=== PATIENT | female | born 1950 | race Caucasian/White ===

== ENCOUNTER 2017-12-10 16:08 | Emergency (ER) | payer OTHER ==
[~2017-12-10] VITALS: Ht 167.6 cm; Wt 95.2 kg
[~2017-12-10 16:08] MED LIST: ASPI325T4 PO; CITA10TA8 PO; CRS10 PO; FLUT0.0529 NAE; GLC/500 PO; OMEP20TA PO; TAMO20TA9 PO
[2017-12-10 16:10] VITALS: Ht 167.6 cm; Wt 95.2 kg
[2017-12-10] MEDS ORDERED: MoRPHine SULFATE 4 MG/ML 1 ML CARP\\VIAL IV STA (16:23)
[2017-12-10] MEDS ORDERED: ONDANSETRON INJ 2 MG/ML 2 ML VIAL IV STA (16:23)
[2017-12-10 16:39] LABS: BASO ABS # 0.06 K/uL (0-0.2); EOS % 4.9 %; EOS ABS # 0.28 K/uL (0-0.5); HEMATOCRIT 37.4 % (37-47); HEMOGLOBIN 13.2 g/dL (12.0-16.0); IG# 0.03 K/uL (0.00-0.02); LYMPH % 25.7 %; LYMPH ABS # 1.48 K/uL (1.2-3.4); MEAN CORPUSCULAR HEMOGLOBIN 30.7 pg (25-34); MEAN CORPUSCULAR HGB CONC 35.3 g/dl (32-36); MEAN PLATELET VOLUME 8.7 fL (7.4-10.4); MONO % 10.9 %; MONO ABS # 0.63 K/uL (0.11-0.59); NEUT ABS # 3.28 K/uL (1.4-6.5); PLATELET COUNT 214 K/uL (130-400); RED CELL DISTRIBUTION WIDTH CV 13.4 % (11.5-14.5); RED CELL DISTRIBUTION WIDTH SD 42.6 fL (36.4-46.3); WHITE BLOOD COUNT 5.76 K/uL (4.8-10.8)
--- NOTE | 2017-12-10 17:06 | DIAGNOSTIC IMAGING REPORT ---
L RIBS UNILATERAL WITH PA CHEST HISTORY: 67 years-old Female L sided chest pain. 6-7 rib acute left sided atypical chest pain with pain most pronounced within the region of the left sixth and seventh ribs. COMPARISON: Chest radiograph 08/11/2015 TECHNIQUE: PA view of the chest with 4 views of the left ribs FINDINGS: Cardiomediastinal and hilar silhouettes are within normal limits. Atherosclerosis of the aorta. There is no pneumothorax, pleural effusion, focal airspace consolidation or overt pulmonary edema. Degenerative changes are seen within the shoulders and spine. Cholecystectomy clips are noted. Ribs appear intact without acute fracture identified. IMPRESSION: 1. No acute cardiopulmonary process. 2. No acute rib fracture or pneumothorax identified. The above report was generated using voice recognition software. It may contain grammatical, syntax or spelling errors. Electronically signed by: Manjit Castillo M.D. 12/10/2017 5:05 PM Dictated Date/Time: 12/10/2017 5:02 PM
[2017-12-10 17:09] LABS: ALBUMIN 3.5 gm/dl (3.4-5.0); CREATININE 1.06 mg/dl (0.60-1.20); POTASSIUM 3.3 mmol/L (3.5-5.1); TOTAL PROTEIN 7.3 gm/dl (6.4-8.2)
[2017-12-10] MEDS ORDERED: METF-384 PO (17:17)
[2017-12-10] MEDS ORDERED: TRAM-10 PO (17:17)
[2017-12-10] MEDS ORDERED: ASPI81TA28 PO (17:17)
[2017-12-10] MEDS ORDERED: CITA20TA9 PO (17:17)
[2017-12-10] MEDS ORDERED: HYDR25TA4 PO (17:17)
[2017-12-10] MEDS ORDERED: AMLO-110 PO (17:17)
[2017-12-10] MEDS ORDERED: PROAIR INH (17:17)
[2017-12-10] MEDS ORDERED: INSDGIPEN SQ (17:22)
[2017-12-10] MEDS ORDERED: CYCL10TA6 PO (17:29)
[2017-12-10] MEDS ORDERED: OPTIRAY 320 IV PRN (18:30)
[2017-12-10 18:51] LABS: INFLUENZA B ANTIGEN Neg for Influ B (NEG)
--- NOTE | 2017-12-10 18:56 | DIAGNOSTIC IMAGING REPORT ---
CT ANGIOGRAM OF THE CHEST CLINICAL HISTORY: Atypical chest pain. COMPARISON STUDY: Chest x-ray dated 08/11/2015. PET CT dated 01/23/2015. TECHNIQUE: Following the IV administration of 89 cc of Optiray 320, CT angiogram of the chest was performed from the upper abdomen to the thoracic inlet utilizing the pulmonary embolus protocol. Images are reviewed in the axial, sagittal, and coronal planes. 3-D MIPS images are created and assessed. IV contrast was administered without complication. A dose lowering technique was utilized adhering to the principles of ALARA. CT DOSE: 556.84 mGycm FINDINGS: Thyroid: Imaged portions of the thyroid gland are normal in size and attenuation. A subcentimeter low-attenuation nodule is seen in the right lobe. Thoracic aorta: There is atherosclerotic calcification of the thoracic aorta is normal in caliber and demonstrates standard 3-vessel arch anatomy. No dissection is seen. 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 Pulmonary vasculature: The pulmonary trunk is normal in caliber. There are no filling defects identified in main, lobar, or segmental pulmonary branches to suggest pulmonary embolus. Heart: The heart is normal in size and without pericardial effusion. There are coronary artery calcifications. Lungs and pleural spaces: A fat-containing Bochdalek hernia is seen at the left lung base. No airspace consolidation or pleural effusion is identified. The trachea and central airways are patent. Mediastinum: There is no mediastinal lymphadenopathy. Rosa Maria: Clear. Axillae: There is no axillary lymphadenopathy. Upper abdomen: The liver appears enlarged and steatotic. A small hiatal hernia is identified. Skeletal structures: The skeletal structures are osteopenic. Degenerative change is noted in the shoulders and thoracic spine. No lytic or blastic bony lesions are seen. Soft tissues: Postoperative changes present in both breasts suggesting bilateral mastectomy. Presumed seromas are present bilaterally. IMPRESSION: 1. There is no evidence of pulmonary embolus in the main, lobar, or segmental pulmonary arteries. 2. There is no airspace consolidation or pleural effusion. 3. 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 Note that this may place the patient at risk for subclavian steal phenomenon. 4. Findings suggest previous bilateral mastectomy. Seromas are suggested within the ventral chest wall bilaterally. 5. Additional findings as above. Electronically signed by: Andriy Desouza M.D. 12/10/2017 6:54 PM Dictated Date/Time: 12/10/2017 6:46 PM
[2017-12-10] MEDS ORDERED: OXYC1TAB3 PO (19:12)
[2017-12-10] MEDS ORDERED: BENZ100C18 PO (19:12)
[2017-12-10 19:39] VITALS: BP 112/71; PULSE 81; TEMP 36.8; O2SAT 98
--- NOTE | 2017-12-10 20:52 | EMERGENCY ROOM VISIT NOTE ---
History Report prepared by Maryann: Casie Cortez Under the Supervision of: Dr. Yovany Arambula D.O. First contact with patient: 16:14 Chief Complaint: RIB PAIN Stated Complaint: SIDE PAIN L History of Present Illness The patient is a 67 year old female who presents to the Emergency Room with complaints of persistent left rib pain starting around 1 hour ago. The pain started suddenly when she coughed. She felt something rip in her side. The pain worsens with exhaling, coughing, and moving. The patient has had a cough for the past 2 weeks. It has been productive of clear and yellow sputum. She has had some rhinorrhea. She denies any headache, ear pain, sore throat, fever, abdominal pain, nausea, vomiting, dysuria, weakness, or numbness. She does smoke. She is on aspirin. She has a history of diabetes and hypertension. She denies any previous NV or blood clots. Source of History: patient Onset: 1 hour ago Position: other (left rib) Quality: other (pain) Timing: other (persistent) Modifying Factors (Worsening): breathing, movement, other (coughing) Associated Symptoms: + cough, No fevers, No headache, No sorethroat, No nausea, No vomiting, No abdominal pain, No urinary symptoms, No weakness, No numbness Note: Pt reports rhinorrhea. Pt denies ear pain. Review of Systems See HPI for pertinent positives & negatives. A total of 10 systems reviewed and were otherwise negative. Past Medical & Surgical Medical Problems: (1) Breast cancer (2) Breast cancer (3) Diabetes mellitus (4) Dyslipidemia (5) Migraines Surgical Problems: (1) H/O bilateral mastectomy (2) H/O dilation and curettage (3) H/O inguinal hernia repair (4) S/P cholecystectomy Family History FH: cancer Social History Smoking Status: Current Every Day Smoker Alcohol Use: none Drug Use: none Marital Status: Housing Status: lives with significant other Occupation Status: retired Current/Historical Medications Scheduled Amlodipine (Norvasc), 5 MG PO DAILY Aspirin (Aspirin Ec), 81 MG PO DAILY Benzonatate (Tessalon Perles), 100 MG PO TID Citalopram Hydrobromide (Celexa), 20 MG PO DAILY Hydrochlorothiazide (Hctz), 25 MG PO DAILY Insulin Glargine (Lantus Solostar), 32 UNITS SQ HS Metformin Hcl (Glucophage), 1,000 MG PO BID Rosuvastatin Calcium (Crestor), 10 MG PO DAILY Tamoxifen (Nolvadex), 20 MG PO DAILY Scheduled PRN Cyclobenzaprine Hcl (Flexeril), 5-10 MG PO TID PRN for Muscle Spasms Omeprazole (Omeprazole), 20 MG PO DAILY PRN for heart burn Oxycodone Immediate Rel Tab (Roxicodone Ir), 5 MG PO Q6H PRN for Pain Tramadol (Ultram), 50 MG PO Q6 PRN for Pain [Proair], 2 PUFF INH Q6 PRN for SOB/Wheezing Allergies Coded Allergies: Penicillins (Verified Allergy, Unknown, RASH, 12/27/09) Atorvastatin (Verified Adverse Reaction, Unknown, MYALGIA, 12/10/17) Physical Exam Vital Signs Date Time Temp Pulse Resp B/P (MAP) Pulse Ox O2 Delivery O2 Flow Rate FiO2 12/10/17 19:39 36.8 81 16 112/71 98 12/10/17 19:38 81 16 112/71 98 Room Air 12/10/17 17:46 81 12/10/17 17:39 78 20 118/69 98 Room Air 12/10/17 16:10 36.8 91 20 177/80 98 Room Air Physical Exam GENERAL: Sitting up in bed, dry nonproductive cough, minimal distress, nontoxic. EYE EXAM: normal conjunctiva. OROPHARYNX: no exudate, no erythema, lips, buccal mucosa, and tongue normal and mucous membranes are moist NECK: supple, no nuchal rigidity, no adenopathy, non-tender CHEST: Acute reproducible tenderness over the ribs 5-7 left mid axillary line. Pain worsens with movement/palpation. LUNGS: Clear to auscultation. Normal chest wall mechanics HEART: no murmurs, S1 normal and S2 normal ABDOMEN: abdomen soft, non-tender, normo-active bowel sounds, no masses, no rebound or guarding. BACK: Back is symmetrical on inspection and there is no deformity, no midline tenderness, no CVA tenderness. SKIN: no rashes and no bruising UPPER EXTREMITIES: upper extremities are grossly normal. LOWER EXTREMITIES: No pitting edema. Calves equal bilaterally. NEURO EXAM: Normal sensorium, cranial nerves II-XII grossly intact, normal speech, no gross weakness of arms, no gross weakness of legs. Medical Decision & Procedures ER Provider Diagnostic Interpretation: Xray results as stated below per my and the radiologist's interpretation. Radiology results as stated below per my review and the radiologist's interpretation: L RIBS UNILATERAL WITH PA CHEST HISTORY: 67 years-old Female L sided chest pain. 6-7 rib acute left sided atypical chest pain with pain most pronounced within the region of the left sixth and seventh ribs. COMPARISON: Chest radiograph 08/11/2015 TECHNIQUE: PA view of the chest with 4 views of the left ribs FINDINGS: Cardiomediastinal and hilar silhouettes are within normal limits. Atherosclerosis of the aorta. There is no pneumothorax, pleural effusion, focal airspace consolidation or overt pulmonary edema. Degenerative changes are seen within the shoulders and spine. Cholecystectomy clips are noted. Ribs appear intact without acute fracture identified. IMPRESSION: 1. No acute cardiopulmonary process. 2. No acute rib fracture or pneumothorax identified. The above report was generated using voice recognition software. It may contain grammatical, syntax or spelling errors. Electronically signed by: Manjit Castillo M.D. 12/10/2017 5:05 PM Dictated Date/Time: 12/10/2017 5:[address] ANGIOGRAM OF THE CHEST CLINICAL HISTORY: Atypical chest pain. COMPARISON STUDY: Chest x-ray dated 08/11/2015. PET CT dated 01/23/2015. TECHNIQUE: Following the IV administration of 89 cc of Optiray 320, CT angiogram of the chest was performed from the upper abdomen to the thoracic inlet utilizing the pulmonary embolus protocol. Images are reviewed in the axial, sagittal, and coronal planes. 3-D MIPS images are created and assessed. IV contrast was administered without complication. A dose lowering technique was utilized adhering to the principles of ALARA. CT DOSE: 556.84 mGycm FINDINGS: Thyroid: Imaged portions of the thyroid gland are normal in size and attenuation. A subcentimeter low-attenuation nodule is seen in the right lobe. Thoracic aorta: There is atherosclerotic calcification of the thoracic aorta is normal in caliber and demonstrates standard 3-vessel arch anatomy. No dissection is seen. 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 Pulmonary vasculature: The pulmonary trunk is normal in caliber. There are no filling defects identified in main, lobar, or segmental pulmonary branches to suggest pulmonary embolus. Heart: The heart is normal in size and without pericardial effusion. There are coronary artery calcifications. Lungs and pleural spaces: A fat-containing Bochdalek hernia is seen at the left lung base. No airspace consolidation or pleural effusion is identified. The trachea and central airways are patent. Mediastinum: There is no mediastinal lymphadenopathy. Rosa Maria: Clear. Axillae: There is no axillary lymphadenopathy. Upper abdomen: The liver appears enlarged and steatotic. A small hiatal hernia is identified. Skeletal structures: The skeletal structures are osteopenic. Degenerative change is noted in the shoulders and thoracic spine. No lytic or blastic bony lesions are seen. Soft tissues: Postoperative changes present in both breasts suggesting bilateral mastectomy. Presumed seromas are present bilaterally. IMPRESSION: 1. There is no evidence of pulmonary embolus in the main, lobar, or segmental pulmonary arteries. 2. There is no airspace consolidation or pleural effusion. 3. 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 Note that this may place the patient at risk for subclavian steal phenomenon. 4. Findings suggest previous bilateral mastectomy. Seromas are suggested within the ventral chest wall bilaterally. 5. Additional findings as above. Electronically signed by: Andriy Desouza M.D. 12/10/2017 6:54 PM Dictated Date/Time: 12/10/2017 6:46 PM Laboratory Results 12/10/17 16:25 Red Blood Count 4.30, Mean Corpuscular Volume 87.0, Mean Corpuscular Hemoglobin 30.7, Mean Corpuscular Hemoglobin Concent 35.3, Mean Platelet Volume 8.7, Neutrophils (%) (Auto) 57.0, Lymphocytes (%) (Auto) 25.7, Monocytes (%) (Auto) 10.9, Eosinophils (%) (Auto) 4.9, Basophils (%) (Auto) 1.0, Neutrophils # (Auto ) 3.28, Lymphocytes # (Auto) 1.48, Monocytes # (Auto) 0.63, Eosinophils # (Auto ) 0.28, Basophils # (Auto) 0.06 12/10/17 16:25 Test 12/10/17 16:25 12/10/17 16:45 12/10/17 17:30 White Blood Count 5.76 K/uL (4.8-10.8) Red Blood Count 4.30 M/uL (4.2-5.4) Hemoglobin 13.2 g/dL (12.0-16.0) Hematocrit 37.4 % (37-47) Mean Corpuscular Volume 87.0 fL (80-100) Mean Corpuscular Hemoglobin 30.7 pg (25-34) Mean Corpuscular Hemoglobin Concent 35.3 g/dl (32-36) Platelet Count 214 K/uL (130-400) Mean Platelet Volume 8.7 fL (7.4-10.4) Neutrophils (%) (Auto) 57.0 % Lymphocytes (%) (Auto) 25.7 % Monocytes (%) (Auto) 10.9 % Eosinophils (%) (Auto) 4.9 % Basophils (%) (Auto) 1.0 % Neutrophils # (Auto) 3.28 K/uL (1.4-6.5) Lymphocytes # (Auto) 1.48 K/uL (1.2-3.4) Monocytes # (Auto) 0.63 K/uL (0.11-0.59) Eosinophils # (Auto) 0.28 K/uL (0-0.5) Basophils # (Auto) 0.06 K/uL (0-0.2) RDW Standard Deviation 42.6 fL (36.4-46.3) RDW Coefficient of Variation 13.4 % (11.5-14.5) Immature Granulocyte % (Auto) 0.5 % Immature Granulocyte # (Auto) 0.03 K/uL (0.00-0.02) D-Dimer 590 ug/L FEU (0-500) Anion Gap 12.0 mmol/L (3-11) Est Creatinine Clear Calc Drug Dose 59.9 ml/min Estimated GFR () 62.9 Estimated GFR (Non- 54.3 BUN/Creatinine Ratio 20.0 (10-20) Calcium Level 9.0 mg/dl (8.5-10.1) Total Bilirubin 0.3 mg/dl (0.2-1) Direct Bilirubin mg/dl (0-0.2) Aspartate Amino Transf (AST/SGOT) 23 U/L (15-37) Alanine Aminotransferase (ALT/SGPT) 28 U/L (12-78) Alkaline Phosphatase 40 U/L (45-117) Total Protein 7.3 gm/dl (6.4-8.2) Albumin 3.5 gm/dl (3.4-5.0) Lipase 208 U/L (73-393) Chemistry Specimen Hemolysis Urine Color YELLOW Urine Appearance CLEAR (CLEAR) Urine pH 5.0 (4.5-7.5) Urine Specific [place] 1.022 (1.000-1.030) Urine Protein 1+ (NEG) Urine Glucose (UA) 2+ (NEG) Urine Ketones NEG (NEG) Urine Occult Blood NEG (NEG) Urine Nitrite NEG (NEG) Urine Bilirubin NEG (NEG) Urine Urobilinogen NEG (NEG) Urine Leukocyte Esterase NEG (NEG) Urine WBC (Auto) 1-5 /hpf (0-5) Urine RBC (Auto) 0-4 /hpf (0-4) Urine Hyaline Casts (Auto) 1-5 /lpf (0-5) Urine Epithelial Cells (Auto) >30 /lpf (0-5) Urine Bacteria (Auto) NEG (NEG) Influenza Type A Antigen Neg for Influ A (NEG) Influenza Type B Antigen Neg for Influ B (NEG) Laboratory results per my review. Medications Administered Medications (Trade) Dose Ordered Sig/Luis Route Start Time Stop Time Status Last Admin Dose Admin Morphine Sulfate (MoRPHine SULFATE INJ) 4 mg NOW STAT IV 12/10/17 16:23 12/10/17 16:24 DC 12/10/17 16:40 4 MG Ondansetron HCl (Zofran Inj) 4 mg NOW STAT IV 12/10/17 16:23 12/10/17 16:24 DC 12/10/17 16:39 4 MG ECG Indication: chest pain Rate (beats per minute): 84 Rhythm: sinus rhythm Findings: left axis deviation, other (poor baseline inferior, early R wave progression) Change: EKG per my interpretation. ED Course ED COURSE: Vital signs were reviewed and showed hypertension. The patients medical record was reviewed The above diagnostic studies were performed and reviewed. ED treatments and interventions as stated above. 1617: The patient was evaluated in room B8. A complete history and physical examination was performed. 1623: Zofran Inj 4 mg IV, Morphine Sulfate 4 mg IV. 1739: I reevaluated the patient. I updated her on the results. 1906: I discussed the patients case with Dr. Beckman, [facility] vascular surgery. He recommends the patient follow up as outpatient. 1908: Upon reevaluation, the patient is resting comfortably. I discussed my findings with the patient and she understands and agrees with the treatment plan. Based on the patients age, coexisting illnesses, exam and lab findings the decision to treat as an outpatient was made. The patient remained stable while under my care. The patient appeared well at the time of discharge. Medical Decision Differential diagnoses includes but is not limited to acute coronary syndrome, myocardial infarction, pericarditis, pulmonary embolus, aortic dissection, pneumonia, pneumothorax, musculoskeletal, shingles, esophageal. Patient is a 67-year-old female who presents to ER for severe left-sided mid axillary pain. This started while coughing. She has had upper respiratory symptoms for the past 2 weeks. No fevers. No history of PEs. EKG was unremarkable. D-dimer was elevated. X-rays of the chest show no obvious fractures. CT PE shows no PEs but left subclavian artery stenosis. She is completely asymptomatic on reevaluation with this. She notes that she is aware of this and her PCP is following this. Her pain has improved significantly. Her coughing has decreased as well. CBC along with BMP, LFTs, bilirubin lipase is unremarkable. UA was negative. Patient was discharged with Michi Ireland and instructed to follow up with her PCP and vascular surgery has had discussed with Dr. Beckman findings and he agreed with having the patient following up as an outpatient. Discussed with Pt concerning signs and symptoms to watch out for. Pt was instructed to follow up with their PCP and discussed with the patient their option to return to the ED at anytime for persistent or worsening symptoms. The appropriate anticipatory guidance and out-patient management, including indications for return to the emergency department, were explained at length to the patient and understood. [place] Drug Monitoring Program Search Results: patient reviewed within database, no issues identified Medication Reconcilliation Current Medication List: was personally reviewed by me Blood Pressure Screening Patient's blood pressure: Elevated blood pressure Blood pressure disposition: Referred to PCP Consults Time Called: 1903 Consulting Physician: Dr. Beckman, [facility] vascular surgery Returned Call: 1906 I discussed the patient's case with him. He recommends the patient follow up as outpatient. Impression Primary Impression: Rib pain on left side Additional Impressions: Subclavian artery stenosis, left Hypokalemia Scribe Attestation The scribe's documentation has been prepared under my direction and personally reviewed by me in its entirety. I confirm that the note above accurately reflects all work, treatment, procedures, and medical decision making performed by me. Departure Information Dispostion Home / Self-Care Prescriptions Benzonatate (TESSALON PERLES) 100 Mg Cap 100 MG PO TID, #30 CAP Prov: Yovany Arambula, DO 12/10/17 Oxycodone Immediate Rel Tab (ROXICODONE IR) 5 Mg Tab 5 MG PO Q6H Y for Pain, #10 TAB Prov: Yovany Arambula, DO 12/10/17 Referrals Teja Parker D.O. (PCP) Mahesh Beckman M.D. Forms HOME CARE DOCUMENTATION FORM, IMPORTANT VISIT INFORMATION, WORK / SCHOOL INSTRUCTIONS Patient Instructions ED Contusion Vs Minor Fx Rib, My [facility] Additional Instructions Please follow up with your primary care doctor with in the next 24 hours. Any worsening of your symptoms, please return to the ED immediately. This includes any fevers greater than 100.4, worsening pain, chest pain, shortness breath, persistent nausea, vomiting, unable to eat or drink, or any other concerning signs or symptoms from your standpoint. You were given medications during this visit that will inhibit your ability to drive, operate machinery and work. Please do NOT drive, operate machinery or work for the next 12hrs. You were also given a prescription for a narcotic. While taking this medication you should also not drive, operate machinery and or work. You were found to have a blood pressure greater than 120 systolic over 90 diastolic. Due to the new Medicare guidelines, we are now recommending that you follow up with your primary care doctor in regards to this elevated blood pressure. Do not take her metformin for the next 2 days. Please follow up with vascular surgery over the next month for the subclavian artery stenosis found on CT of the chest. Problem Qualifiers
== END 2017-12-10 19:39 | disposition home or self-care (01) ==
LOC: C.EDB 16:09
DX: R07.81 Pleurodynia (principal); I77.1 Stricture of artery; E87.6 Hypokalemia; E11.9 Type 2 diabetes mellitus without complications; E78.5 Hyperlipidemia, unspecified; F17.200 Nicotine dependence, unspecified, uncomplicated; Z79.82 Long term (current) use of aspirin; Z79.4 Long term (current) use of insulin

== ENCOUNTER 2018-01-12 23:39 | Inpatient (IN) | payer OTHER ==
[~2018-01-12] VITALS: Ht 167.6 cm; Wt 90.1 kg
[~2018-01-12 23:39] MED LIST changes: +AMLO-110 PO; -ASPI325T4 PO; +ASPI81TA28 PO; -CITA10TA8 PO; +CITA20TA9 PO; +CYCL10TA6 PO; -FLUT0.0529 NAE; -GLC/500 PO; +HYDR25TA4 PO; +INSDGIPEN SQ; +METF-384 PO; +OXYC1TAB3 PO; +PROAIR INH; +TRAM-10 PO
--- NOTE | 2018-01-12 23:59 | EMERGENCY ROOM VISIT NOTE ---
History Report prepared by Maryann: Annalise Arango Under the Supervision of: Dr. Berhane Pepper M.D. First contact with patient: 23:47 Chief Complaint: SHORTNESS OF BREATH Stated Complaint: SHORTNESS OF BREATH,WHEEZING History of Present Illness The patient is a 67 year old female who presents to the Emergency Room with complaints of persistent shortness of breath started earlier today. The patient reports she has an inhaler at home. She notes she saw her PCP today and they did a chest x-ray and a breathing treatment. She states she's had a cough and congestion for the past few days. The patient reports she has been on 60 mg Prednisone for 5 days. She notes she took Zithromysin for 4 days but she switched to Levaquin today. She states she has chest pain "every once in a while ". The patient denies any fevers, headaches, body aches, falls, injuries, or calf pain. She denies a history of blood clots. Source of History: patient Onset: earlier in the day Position: other (SOB) Timing: other (persistent) Associated Symptoms: + cough, No fevers, No headache Note: Denies any body aches, falls, injuries, or calf pain. Additional symptoms: nasal congestion. Review of Systems See HPI for pertinent positives & negatives. A total of 10 systems reviewed and were otherwise negative. Past Medical & Surgical Medical Problems: (1) Breast cancer (2) Breast cancer (3) Diabetes mellitus (4) Dyslipidemia (5) Migraines (6) SOB (shortness of breath) (7) Wheezing Surgical Problems: (1) H/O bilateral mastectomy (2) H/O dilation and curettage (3) H/O inguinal hernia repair (4) S/P cholecystectomy Family History FH: cancer Social History Smoking Status: Never Smoker Alcohol Use: none Drug Use: none Marital Status: Housing Status: lives with significant other Occupation Status: retired Current/Historical Medications Scheduled Amlodipine (Norvasc), 5 MG PO DAILY Aspirin (Aspirin Ec), 81 MG PO DAILY Citalopram Hydrobromide (Celexa), 20 MG PO DAILY Hydrochlorothiazide (Hctz), 25 MG PO DAILY Insulin Glargine (Lantus Solostar), 32 UNITS SQ HS Levofloxacin (Levaquin), 500 MG PO DAILY Metformin Hcl (Glucophage), 1,000 MG PO BID Naproxen (Naprosyn), 500 MG PO BIDM Prednisone (Prednisone), 60 MG PO DAILY Rosuvastatin Calcium (Crestor), 10 MG PO DAILY Tamoxifen (Nolvadex), 20 MG PO DAILY Scheduled PRN Albuterol Sulf (Proventil 0.083% 2.5MG/3ML), 2.5 MG INH Q4H PRN for Wheezing Albuterol Sulfate (Proair Respiclick), 2 PUFFS INH Q6H PRN for COUGH OR WHEEZING Benzonatate (Tessalon Perles), 200 MG PO TID PRN for Cough Guaifenesin-Codeine (Robitussin-Ac Syrup), 5 ML PO TID PRN for Cough Omeprazole (Omeprazole), 20 MG PO DAILY PRN for heart burn Tramadol (Ultram), 50 MG PO Q6 PRN for Pain Allergies Coded Allergies: Penicillins (Verified Allergy, Unknown, RASH, 12/27/09) Atorvastatin (Verified Adverse Reaction, Unknown, MYALGIA, 12/10/17) Physical Exam Vital Signs Date Time Temp Pulse Resp B/P (MAP) Pulse Ox O2 Delivery O2 Flow Rate FiO2 01/13/18 02:01 85/65 01/13/18 01:32 100 17 95 Nasal Cannula 2.0 01/13/18 01:31 Nasal Cannula 2.0 01/13/18 01:30 21 93 Room Air 01/13/18 01:11 107 01/13/18 01:10 106 18 94 01/13/18 01:08 94 17 98/70 94 Room Air 01/13/18 01:08 94 Room Air 01/13/18 00:01 95 20 94 Room Air 01/12/18 23:41 36.7 105 28 123/77 92 Room Air Physical Exam GENERAL: Patient is uncomfortable appearing and is mildly distressed. HEENT: No acute trauma, normocephalic atraumatic, mucous membranes moist, no nasal congestion, no scleral icterus. NECK: No stridor, no adenopathy, no meningismus, trachea is midline. LUNGS: Tight lung sounds, diffuse inspiratory and expiatory wheezing, dyspneic and tachypneic. HEART: Mildly tachycardic. No murmurs, rubs, gallops appreciated. ABDOMEN: Soft, nontender, bowel sounds positive, no masses appreciated, no peritonitis. BACK: No midline tenderness, no CVA tenderness EXTREMITIES: Normal motion all extremities, no cyanosis, no edema. NEUROLOGIC: Alert and oriented, no acute motor or sensory deficits, no focal weakness, cranial nerves grossly intact. SKIN: No rash, no jaundice, no diaphoresis. Medical Decision & Procedures ER Provider Diagnostic Interpretation: X ray results are stated below per my interpretation: Chest: 1 view: No infiltrate, no effusion, normal cardiac border, however questionable atelectasis vs infiltrate in bilateral lower lobes. Laboratory Results 01/13/18 00:00 Red Blood Count 4.57, Mean Corpuscular Volume 85.6, Mean Corpuscular Hemoglobin 30.4, Mean Corpuscular Hemoglobin Concent 35.5, Mean Platelet Volume 8.6, Neutrophils (%) (Auto) 73.9, Lymphocytes (%) (Auto) 15.2, Monocytes (%) (Auto) 8.9, Eosinophils (%) (Auto) 0.1, Basophils (%) (Auto) 0.1, Neutrophils # (Auto) 10.41, Lymphocytes # (Auto) 2.15, Monocytes # (Auto) 1.26, Eosinophils # (Auto) 0.01, Basophils # (Auto) 0.02 Test 01/13/18 00:00 White Blood Count 14.11 K/uL (4.8-10.8) Red Blood Count 4.57 M/uL (4.2-5.4) Hemoglobin 13.9 g/dL (12.0-16.0) Hematocrit 39.1 % (37-47) Mean Corpuscular Volume 85.6 fL (80-100) Mean Corpuscular Hemoglobin 30.4 pg (25-34) Mean Corpuscular Hemoglobin Concent 35.5 g/dl (32-36) Platelet Count 340 K/uL (130-400) Mean Platelet Volume 8.6 fL (7.4-10.4) Neutrophils (%) (Auto) 73.9 % Lymphocytes (%) (Auto) 15.2 % Monocytes (%) (Auto) 8.9 % Eosinophils (%) (Auto) 0.1 % Basophils (%) (Auto) 0.1 % Neutrophils # (Auto) 10.41 K/uL (1.4-6.5) Lymphocytes # (Auto) 2.15 K/uL (1.2-3.4) Monocytes # (Auto) 1.26 K/uL (0.11-0.59) Eosinophils # (Auto) 0.01 K/uL (0-0.5) Basophils # (Auto) 0.02 K/uL (0-0.2) RDW Standard Deviation 41.6 fL (36.4-46.3) RDW Coefficient of Variation 13.4 % (11.5-14.5) Immature Granulocyte % (Auto) 1.8 % Immature Granulocyte # (Auto) 0.26 K/uL (0.00-0.02) Nucleated RBC Absolute Count (auto) 0.03 K/uL (0-0) Nucleated Red Blood Cells % 0.2 % Est Creatinine Clear Calc Drug Dose 51.6 ml/min Troponin I < 0.015 ng/ml (0-0.045) Laboratory results as reviewed by me. Medications Administered Medications (Trade) Dose Ordered Sig/Luis Route Start Time Stop Time Status Last Admin Dose Admin Albuterol/ Ipratropium (Duoneb) 12 ml ONE ONCE INH 01/13/18 00:00 01/13/18 00:01 DC 01/12/18 23:58 12 ML Levofloxacin (Levaquin / D5W) 750 mg NOW STAT IV 01/13/18 01:23 01/13/18 01:24 DC 01/13/18 01:30 750 MG ED Course 2347: The patient was evaluated in room B2. A complete history and physical exam was performed. 0040: The patient notes her breathing feels improved, however she still has loud diffused wheezing. 0125: Paged [facility] hospitalist. 0133: Discussed the patient's case with Dr. Franks. The patient will be evaluated for further treatment and disposition. Medical Decision Differential: Infectious, Reactive Airway Disease, Pneumonia, Pneumothorax, COPD , CHF, ACS, Pulmonary Embolism, MSK, GI, Dissection, amongst other etiologies entertained. 67 yr old female arrives for evaluation of shortness of breath. Notes 1 week worsening cough/congestion. Associated with fatigue/weakness. On exam in COPD exacerbation. No evidence ACS, PE, MSK, Dissection, CHF. CXR clear. Labs with minor hypokalemia. After Hour neb still quite poor lung exam and given this along with failing outpatient meds will need to come in. Empiric ABX given but no evidence pneumonia/sepsis. Symptoms do not seem flu like and thus held off on rapid flu. Medication Reconcilliation Current Medication List: was personally reviewed by me Blood Pressure Screening Patient's blood pressure: Low blood pressure (mildly low) Consults Time Called: 124 Consulting Physician: Dr. Franks Returned Call: [phone] Discussed the patient's case with Dr. Franks. The patient will be evaluated for further treatment and disposition. Impression Primary Impression: Asthma with exacerbation Scribe Attestation The scribe's documentation has been prepared under my direction and personally reviewed by me in its entirety. I confirm that the note above accurately reflects all work, treatment, procedures, and medical decision making performed by me. Departure Information Referrals Teja Parker, D.O. (PCP) Patient Instructions My [facility] Problem Qualifiers Primary Impression: Asthma with exacerbation
[2018-01-13] VITALS (7 sets, daily range): BP systolic 92–114; BP diastolic 65–78; PULSE 77–96; TEMP 36.4; O2SAT 91–95; Ht 167.6 cm; Wt 90.1 kg
[2018-01-13] MEDS ORDERED: ALBUT/IPRATROP 3MG/0.5MG NEB 3 ML VIAL INH ONE
[2018-01-13 00:14] LABS: BASO % 0.1 %; BASO ABS # 0.02 K/uL (0-0.2); EOS % 0.1 %; EOS ABS # 0.01 K/uL (0-0.5); HEMATOCRIT 39.1 % (37-47); HEMOGLOBIN 13.9 g/dL (12.0-16.0); IG# 0.26 K/uL (0.00-0.02); LYMPH % 15.2 %; LYMPH ABS # 2.15 K/uL (1.2-3.4); MEAN CELL VOLUME 85.6 fL (80-100); MEAN CORPUSCULAR HEMOGLOBIN 30.4 pg (25-34); MEAN CORPUSCULAR HGB CONC 35.5 g/dl (32-36); MEAN PLATELET VOLUME 8.6 fL (7.4-10.4); MONO % 8.9 %; MONO ABS # 1.26 K/uL (0.11-0.59); NEUT % 73.9 %; NEUT ABS # 10.41 K/uL (1.4-6.5); NUCLEATED RED BLOOD CELL ABS 0.03 K/uL (0-0); PLATELET COUNT 340 K/uL (130-400); RED CELL DISTRIBUTION WIDTH CV 13.4 % (11.5-14.5); RED CELL DISTRIBUTION WIDTH SD 41.6 fL (36.4-46.3); WHITE BLOOD COUNT 14.11 K/uL (4.8-10.8)
[2018-01-13 00:32] LABS: BLOOD UREA NITROGEN 21 mg/dl (7-18); CALCIUM 8.4 mg/dl (8.5-10.1); CARBON DIOXIDE 26 mmol/L (21-32); CREATININE 1.21 mg/dl (0.60-1.20); GLUCOSE 193 mg/dl (70-99); POTASSIUM 2.9 mmol/L (3.5-5.1); SODIUM 135 mmol/L (136-145)
[2018-01-13] MEDS ORDERED: LEVAQUIN 750MG / 150ML D5W IV STA (01:23)
[2018-01-13] MEDS ORDERED: ALBU18002 INH (01:44)
[2018-01-13] MEDS ORDERED: ALBINS/ INH (01:46)
[2018-01-13] MEDS ORDERED: BENZ1CAP90 PO (01:47)
[2018-01-13] MEDS ORDERED: GUAISYP5 PO (01:49)
[2018-01-13] MEDS ORDERED: LEVO1TAB33 PO (01:52)
[2018-01-13] MEDS ORDERED: PRED20TA PO (01:59)
[2018-01-13] MEDS ORDERED: NAPR-1169 PO (02:06)
[2018-01-13] MEDS ORDERED: ACETAMINOPHEN 325 MG TAB PO PRN (02:45)
[2018-01-13] MEDS ORDERED: POLYETHYLENE (MIRALAX) 17 GM PACK PO PRN (02:45)
[2018-01-13] MEDS ORDERED: ONDANSETRON INJ 2 MG/ML 2 ML VIAL IV PRN (02:45)
[2018-01-13] MEDS ORDERED: IPRATROPIUM BROMIDE NEB SOLN 0.02% 2.5 ML VIAL INH PRN (02:45)
[2018-01-13] MEDS ORDERED: LEVALBUTEROL 1.25MG/0.5ML NEB INH PRN (02:45)
[2018-01-13] MEDS ORDERED: POTASSIUM CHLORIDE 10 MEQ TABCR PO STA (02:46)
[2018-01-13] MEDS ORDERED: TRAMADOL HCL 50 MG TAB PO PRN (03:00)
[2018-01-13] MEDS ORDERED: GLUCOSE 40% GEL 15 GM TUBE PO PRN (03:00)
[2018-01-13] MEDS ORDERED: DEXTROSE 50% 50 ML SYR IV PRN (03:00)
[2018-01-13] MEDS ORDERED: BENZONATATE 100MG CAP PO PRN (03:00)
[2018-01-13] MEDS ORDERED: PANTOprazole SOD 40 MG TAB PO PRN (03:00)
[2018-01-13] MEDS ORDERED: GUAIFENESIN/CODEINE 200MG/20MG 10ML UDC PO PRN (03:00)
[2018-01-13] MEDS ORDERED: GLUCAGON FOR INJ 1 MG VIAL SQ PRN (03:00)
[2018-01-13] MEDS ORDERED: GLUCOSE 10 TABS/TUBE PO PRN (03:00)
--- NOTE | 2018-01-13 03:10 | History and Physical ---
History & Physical Date & Time of Service: Jan 13, 2018 at 02:58 Chief Complaint: Shortness Of Breath,Wheezing Primary Care Physician: Teja Parker D.O. History of Present Illness Source: patient, clinic records Patient is a 67 yo female who presents to the ER tonight for complaints of SOB, cough, wheezing that have been worse today. She reports she has had URI symptoms of nasal congestion, cough intermittently for the last 6 weeks, and is currently on her 3rd course of steroid taper because her symptoms improve and within a week of completing steroids her symptoms return. She reports that her cough is sometimes productive. She states her nasal discharge is clear and occasionally yellow, much like her phlegm when she is able to expectorate. She states she was seen at her PCP's office today and had her abx switched to levaquin. She also states she has nebs and an inhaler which have not made much difference to her symptoms. She reports having some chills but denies any fevers , and also states she has had a headache. She feels her cough has been less productive. Earlier this evening she began having worsening SOB and MIRANDA and felt panicky about not being able to breathe and this prompted her to come to the hospital. Past Medical/Surgical History Medical Problems: (1) Breast cancer, with recurrence/mets (2) Diabetes mellitus (3) Dyslipidemia (4) Migraines (5) CKD Stage II (6) HTN (7) Anxiety and depression Surgical Problems: (1) H/O bilateral mastectomy (2) H/O dilation and curettage (3) H/O inguinal hernia repair (4) S/P cholecystectomy Family History FH: cancer Breast cancer in 2 sisters, Uterine cancer in mother, Rectal cancer in brother Social History Smoking Status: Current Every Day Smoker Drug Use: none Marital Status: Housing status: lives with family Occupational Status: retired Immunizations History of Influenza Vaccine: Yes Influenza Vaccine Date: Aug 04, 2014 History of Tetanus Vaccine?: Yes Tetanus Immunization Date: Jan 23, 2011 History of Pneumococcal: Yes Pneumococcal Date: Jan 08, 2006 Multi-Drug Resistant Organisms History of MDRO: No Allergies Coded Allergies: Penicillins (Verified Allergy, Unknown, RASH, 12/27/09) Atorvastatin (Verified Adverse Reaction, Unknown, MYALGIA, 12/10/17) Home Medications Scheduled Amlodipine (Norvasc), 5 MG PO DAILY Aspirin (Aspirin Ec), 81 MG PO DAILY Citalopram Hydrobromide (Celexa), 20 MG PO DAILY Hydrochlorothiazide (Hctz), 25 MG PO DAILY Insulin Glargine (Lantus Solostar), 32 UNITS SQ HS Levofloxacin (Levaquin), 500 MG PO DAILY Metformin Hcl (Glucophage), 1,000 MG PO BID Naproxen (Naprosyn), 500 MG PO BIDM Prednisone (Prednisone), 60 MG PO DAILY Rosuvastatin Calcium (Crestor), 10 MG PO DAILY Tamoxifen (Nolvadex), 20 MG PO DAILY Scheduled PRN Albuterol Sulf (Proventil 0.083% 2.5MG/3ML), 2.5 MG INH Q4H PRN for Wheezing Albuterol Sulfate (Proair Respiclick), 2 PUFFS INH Q6H PRN for COUGH OR WHEEZING Benzonatate (Tessalon Perles), 200 MG PO TID PRN for Cough Guaifenesin-Codeine (Robitussin-Ac Syrup), 5 ML PO TID PRN for Cough Omeprazole (Omeprazole), 20 MG PO DAILY PRN for heart burn Tramadol (Ultram), 50 MG PO Q6 PRN for Pain Review of Systems Constitutional: + chills, No fever, No sweats Eyes: No eye pain, No redness, No diplopia ENT: + nasal symptoms, No sore throat, No trouble swallowing Respiratory: + cough, + wheezing, + shortness of breath, + dyspnea on exertion Cardiovascular: + chest pain, No edema, No palpitations Abdomen: No pain, No nausea, No vomiting, No diarrhea, No constipation Musculoskeletal: No joint pain, No muscle pain, No swelling Genitourinary - Female: No dysuria, No urinary frequency, No urinary urgency Neurologic: No paralysis, No numbness/tingling, No balance problems Psychiatric: + insomnia, No depression symptoms, No anxiety, No substance abuse Endocrine: No problem reported Hematologic / Lymphatic: No abnormal bleeding/bruising, No clotting problems, No problem reported Integumentary: No rash, No itch, No new/changing skin lesions Physical Exam Vital Signs Date Time Temp Pulse Resp B/P (MAP) Pulse Ox O2 Delivery O2 Flow Rate FiO2 01/13/18 02:27 107/82 01/13/18 02:10 93 21 96 Nasal Cannula 2.0 01/13/18 02:01 85/65 01/13/18 01:32 100 17 95 Nasal Cannula 2.0 01/13/18 01:31 Nasal Cannula 2.0 01/13/18 01:30 21 93 Room Air 01/13/18 01:11 107 01/13/18 01:10 106 18 94 01/13/18 01:08 94 17 98/70 94 Room Air 01/13/18 01:08 94 Room Air 01/13/18 00:01 95 20 94 Room Air 01/12/18 23:41 36.7 105 28 123/77 92 Room Air General Appearance: WD/WN, no apparent distress Head: normocephalic, atraumatic Eyes: PERRL, EOMI, sclerae normal ENT: hearing grossly normal Neck: supple, no JVD, no carotid bruits, trachea midline Respiratory/Chest: chest non-tender, no respiratory distress, no accessory muscle use, + decreased breath sounds, + wheezing Cardiovascular: no edema, no gallop, no JVD, no murmur, + tachycardia Abdomen/GI: normal bowel sounds, non tender, soft, no organomegaly Back: normal inspection, no CVA tenderness Extremities/Musculoskelatal: no calf tenderness, no pedal edema, non-tender Neurologic/Psych: no motor/sensory deficits, alert, normal mood/affect, oriented x 3 Skin: normal color, warm/dry, no rash Diagnostics Laboratory Results Results Past 24 Hours Test 01/13/18 00:00 Range/Units White Blood Count 14.11 4.8-10.8 K/uL Red Blood Count 4.57 4.2-5.4 M/uL Hemoglobin 13.9 12.0-16.0 g/dL Hematocrit 39.1 37-47 % Mean Corpuscular Volume 85.6 80-100 fL Mean Corpuscular Hemoglobin 30.4 25-34 pg Mean Corpuscular Hemoglobin Concent 35.5 32-36 g/dl Platelet Count 340 130-400 K/uL Mean Platelet Volume 8.6 7.4-10.4 fL Neutrophils (%) (Auto) 73.9 % Lymphocytes (%) (Auto) 15.2 % Monocytes (%) (Auto) 8.9 % Eosinophils (%) (Auto) 0.1 % Basophils (%) (Auto) 0.1 % Neutrophils # (Auto) 10.41 1.4-6.5 K/uL Lymphocytes # (Auto) 2.15 1.2-3.4 K/uL Monocytes # (Auto) 1.26 0.11-0.59 K/uL Eosinophils # (Auto) 0.01 0-0.5 K/uL Basophils # (Auto) 0.02 0-0.2 K/uL RDW Standard Deviation 41.6 36.4-46.3 fL RDW Coefficient of Variation 13.4 11.5-14.5 % Immature Granulocyte % (Auto) 1.8 % Immature Granulocyte # (Auto) 0.26 0.00-0.02 K/uL Nucleated RBC Absolute Count (auto) 0.03 0-0 K/uL Nucleated Red Blood Cells % 0.2 % Sodium Level 135 136-145 mmol/L Potassium Level 2.9 3.5-5.1 mmol/L Chloride Level 98 98-107 mmol/L Carbon Dioxide Level 26 21-32 mmol/L Anion Gap 11.0 3-11 mmol/L Blood Urea Nitrogen 21 7-18 mg/dl Creatinine 1.21 0.60-1.20 mg/dl Est Creatinine Clear Calc Drug Dose 51.6 ml/min Estimated GFR () 53.6 Estimated GFR (Non- 46.3 BUN/Creatinine Ratio 17.6 10-20 Random Glucose 193 70-99 mg/dl Calcium Level 8.4 8.5-10.1 mg/dl Troponin I < 0.015 0-0.045 ng/ml Impression Assessment and Plan PROBABLE BRONCHITIS VS COPD EXACERBATION: -no previous diagnosis of COPD, however patient is a longstanding tobacco smoker -will need formal Pulm eval as outpatient once acute symptoms have resolved for definitive diagnosis as patient and outpatient records do not mention any hx of asthma or COPD -was hypoxic to 88% on RA -start IV solu-medrol -nebs -oxygen therapy -CXR negative for pneumonia -continued on levaquin -sputum culture DM TYPE II: -has been on steroids intermittently the last 6 weeks, expect HbA1c to be elevated -lantus + correction scale insulin -Glycemic pharmacy consult -hold metformin -BSG AC and HS HTN: -hold hctz and amlodipine for low BP CKD STAGE II: -Cr at baseline -avoid nephrotoxins HYPOKALEMIA: -replete and recheck BREAST CANCER: -continue on tamoxifen -outpatient follow up with Onc -prior hx of mastectomy and chemo/radiation DYSLIPIDEMIA: -continue on statin VTE Prophylaxis VTE Risk Assessment Done? Y/N: Yes Risk Level: Moderate
[2018-01-13] MEDS ORDERED: PHARMACY GLYCEMIC MGMT CONSULT PRN (03:22)
[2018-01-13 04:02] LABS: INFLUENZA B ANTIGEN Neg for Influ B (NEG)
[2018-01-13] MEDS ORDERED: INSULIN ASPART 100 UNITS/ML 3 ML PEN SC ONE (04:30)
[2018-01-13] MEDS: METHYLPREDNISOLONE IV 40 MG in SYRINGE 0 ML IV SCH ×3 (04:51→20:27)
--- NOTE | 2018-01-13 06:40 | DIAGNOSTIC IMAGING REPORT ---
CHEST ONE VIEW PORTABLE CLINICAL HISTORY: Shortness of breath. Exacerbation of asthma COMPARISON STUDY: 08/11/2015 FINDINGS: The cardiac and mediastinal contours are normal. There is no evidence of focal pulmonary consolidation. There is no evidence of failure. No pleural effusions are visualized.[ Postmastectomy changes are evident. IMPRESSION: No active disease in the chest. Electronically signed by: Efren Austin M.D. 01/13/2018 6:38 AM Dictated Date/Time: 01/13/2018 6:37 AM
[2018-01-13 07:05] LABS: INR 1.1 (0.9-1.1)
[2018-01-13 07:37] LABS: CALCIUM 8.5 mg/dl (8.5-10.1); CREATININE 1.06 mg/dl (0.60-1.20); POTASSIUM 2.9 mmol/L (3.5-5.1)
[2018-01-13] MEDS ORDERED: [UNRECOGNIZED DRUG - OTHER] IV SCH (08:30)
[2018-01-13] MEDS ORDERED: MAG SULFATE IV SCH (08:30)
[2018-01-13] MEDS ORDERED: POTASSIUM CHLORIDE IV SCH (08:30)
[2018-01-13] MEDS: TAMOXIFEN CITRATE 10 MG TAB PO SCH (08:46)
[2018-01-13] MEDS: ROSUVASTATIN CALCIUM 10 MG TAB PO SCH (08:48)
[2018-01-13] MEDS: INSULIN ASPART 100 UNITS/ML 3 ML PEN SC SCH ×4 (08:48→20:30)
[2018-01-13] MEDS: ASPIRIN 81 MG ECTAB PO SCH (08:49)
[2018-01-13] MEDS: ENOXAPARIN 30 MG/0.3 ML SYR SQ SCH ×2 (09:01→20:27)
[2018-01-13 12:20] LABS: HEMOGLOBIN A1C 7.6 % (4.5-5.6)
--- NOTE | 2018-01-13 14:24 | Pharmacy Progress Note ---
Glycemic Control Intl Consult Date of Service Jan 13, 2018. Scope Glycemic Pharmacist consulted by Dr Franks on 01/13/18 for glycemic control and to write orders per [facility] inpatient glycemic control protocol. Objective Weight (Kilograms): 90.100 Accuchecks BSG (last 24hrs): Test 01/13/18 00:00 01/13/18 04:48 01/13/18 06:15 01/13/18 12:28 Random Glucose 193 mg/dl (70-99) 127 mg/dl (70-99) Bedside Glucose 138 mg/dl (70-90) 287 mg/dl (70-90) Laboratory Data (last 24hrs) Test 01/13/18 00:00 01/13/18 06:15 Anion Gap 11.0 mmol/L 10.0 mmol/L BUN/Creatinine Ratio 17.6 17.0 Blood Urea Nitrogen 21 mg/dl 18 mg/dl Creatinine 1.21 mg/dl 1.06 mg/dl Potassium Level 2.9 mmol/L 2.9 mmol/L Sodium Level 135 mmol/L 135 mmol/L White Blood Count 14.11 K/uL Red Blood Count 4.57 M/uL Hemoglobin 13.9 g/dL Hematocrit 39.1 % Mean Corpuscular Volume 85.6 fL Mean Corpuscular Hemoglobin 30.4 pg Mean Corpuscular Hemoglobin Concent 35.5 g/dl Platelet Count 340 K/uL Mean Platelet Volume 8.6 fL Neutrophils (%) (Auto) 73.9 % Lymphocytes (%) (Auto) 15.2 % Monocytes (%) (Auto) 8.9 % Eosinophils (%) (Auto) 0.1 % Basophils (%) (Auto) 0.1 % Neutrophils # (Auto) 10.41 K/uL Lymphocytes # (Auto) 2.15 K/uL Monocytes # (Auto) 1.26 K/uL Eosinophils # (Auto) 0.01 K/uL Basophils # (Auto) 0.02 K/uL Hemoglobin A1c 7.6 % HbA1c Test 01/13/18 06:15 Hemoglobin A1c 7.6 % (4.5-5.6) H Recent Pertinent Medications Outpatient Anti-diabetic Regimen: * Lantus 32 units SQ qHS * A1c = 7.6% (01/13/18) Risk Factors for Insulin Resistance: * Steroids: SoluMedrol 40mg IV q8h * Infection: LVQ PO (pulm infx) * Diet: Type 2 diabetic/AHA diet Assessment & Plan ASSESSMENT: * Ms Barragan is a 67yo diabetic female admitted with SOB. * Patient is hyperglycemic today pre-lunch, d/t steroids. * Will increase Lantus dose and give early. Will attempt to maintain daily evening doses for ease of transition back to home regimen after discharge. * Novolog parameters adjusted to provide additional prandial coverage while patient is receiving SoluMedrol. PLAN FOR INPATIENT GLYCEMIC CONTROL: * Basal insulin with LANTUS 50 units SQ qPM -- first dose today @1500 * Correctional Insulin with NOVOLOG per scale ACHS or Q6hrs while NPO * Goal Range: Low 110 mg/dL - High 140 mg/dL * Correction Factor: 20 mg/dL/unit * Nutritional / Prandial insulin per carb ratio of 1 unit per 6 grams CHO consumed * Additional checks at 0000 and 0400 tonight to cover for any additional hyperglycemia DISCHARGE PLANNING: * Current A1c (7.6%) indicates slightly sub-optimal glycemic control for a 67yo. * May consider slight increase in Lantus dose on discharge? * Recommend f/u with PCP after discharge to optimize A1c. * Please note that the plan above was derived based on current level of insulin resistance and hospital stress. These recommendations are appropriate for inpatient admission only. Plan of care upon discharge will need to be reassessed to avoid potential outpatient hypo/hyperglycemia. Thank you.
[2018-01-13] MEDS ORDERED: INSULIN GLARGINE SOLOSTAR 100 UNITS/ML 3 ML PEN SC SCH (15:00)
[2018-01-13] MEDS ORDERED: INSULIN GLARGINE SOLOSTAR 100 UNITS/ML 3 ML PEN SQ SCH (21:00)
--- NOTE | 2018-01-13 21:56 | Progress Note ---
Medicine Progress Note Date & Time of Visit: Jan 13, 2018 at 12:28. Subjective 67 yo F with no h/o heart or lung disease presents with multiple rounds of abx and steroids as outpatient without improvement in breathing. She reports her breathing is much improved today and she is feeling better overall. She is tolerating PO and denies and fevers or chills. Denies vomiting or diarrhea. Objective Last 8 Hrs Date Time Temp Pulse Resp B/P (MAP) Pulse Ox O2 Delivery O2 Flow Rate FiO2 01/13/18 10:51 Room Air 2.0 01/13/18 06:57 36.4 84 18 92/65 (74) 95 Nasal Cannula 2.0 Physical Exam: GEN: WNWD, in no acute distress, alert and appropriate HEENT: NC/AT, PERRL, normal sclerae CARDIO: reg rate, S1/2 heard without m/g/r LUNGS: CTA bilaterally, no crackles, rales or wheezes, good diaphragmatic excursion ABD: soft, non-tender, non-distended, no rebound or guarding EXTREMITY: RP and DP palpable 2+ bilat, no LE swelling or edema, extremities are warm and well-perfused NEURO: CN 2-12grossly intact MUSC: 5/5 strength throughout, no gross focal deficits SKIN: warm and dry Laboratory Results: 01/13/18 00:00 Red Blood Count 4.57, Mean Corpuscular Volume 85.6, Mean Corpuscular Hemoglobin 30.4, Mean Corpuscular Hemoglobin Concent 35.5, Mean Platelet Volume 8.6, Neutrophils (%) (Auto) 73.9, Lymphocytes (%) (Auto) 15.2, Monocytes (%) (Auto) 8.9, Eosinophils (%) (Auto) 0.1, Basophils (%) (Auto) 0.1, Neutrophils # (Auto) 10.41, Lymphocytes # (Auto) 2.15, Monocytes # (Auto) 1.26, Eosinophils # (Auto) 0.01, Basophils # (Auto) 0.02 01/13/18 06:15 Test 01/13/18 00:00 01/13/18 03:00 01/13/18 06:15 01/13/18 20:16 White Blood Count 14.11 K/uL (4.8-10.8) Red Blood Count 4.57 M/uL (4.2-5.4) Hemoglobin 13.9 g/dL (12.0-16.0) Hematocrit 39.1 % (37-47) Mean Corpuscular Volume 85.6 fL (80-100) Mean Corpuscular Hemoglobin 30.4 pg (25-34) Mean Corpuscular Hemoglobin Concent 35.5 g/dl (32-36) Platelet Count 340 K/uL (130-400) Mean Platelet Volume 8.6 fL (7.4-10.4) Neutrophils (%) (Auto) 73.9 % Lymphocytes (%) (Auto) 15.2 % Monocytes (%) (Auto) 8.9 % Eosinophils (%) (Auto) 0.1 % Basophils (%) (Auto) 0.1 % Neutrophils # (Auto) 10.41 K/uL (1.4-6.5) Lymphocytes # (Auto) 2.15 K/uL (1.2-3.4) Monocytes # (Auto) 1.26 K/uL (0.11-0.59) Eosinophils # (Auto) 0.01 K/uL (0-0.5) Basophils # (Auto) 0.02 K/uL (0-0.2) RDW Standard Deviation 41.6 fL (36.4-46.3) RDW Coefficient of Variation 13.4 % (11.5-14.5) Immature Granulocyte % (Auto) 1.8 % Immature Granulocyte # (Auto) 0.26 K/uL (0.00-0.02) Nucleated RBC Absolute Count (auto) 0.03 K/uL (0-0) Nucleated Red Blood Cells % 0.2 % Troponin I < 0.015 ng/ml (0-0.045) Influenza Type A Antigen Neg for Influ A (NEG) Influenza Type B Antigen Neg for Influ B (NEG) Prothrombin Time 11.1 SECONDS (9.0-12.0) Prothromb Time International Ratio 1.1 (0.9-1.1) Anion Gap 10.0 mmol/L (3-11) Est Creatinine Clear Calc Drug Dose 58.2 ml/min Estimated GFR () 62.9 Estimated GFR (Non- 54.3 BUN/Creatinine Ratio 17.0 (10-20) Estimated Average Glucose 171 mg/dl Hemoglobin A1c 7.6 % (4.5-5.6) Calcium Level 8.5 mg/dl (8.5-10.1) Magnesium Level 1.2 mg/dl (1.8-2.4) Chemistry Specimen Hemolysis Bedside Glucose 248 mg/dl (70-90) Last 24 Hours Test 01/13/18 00:00 01/13/18 03:00 01/13/18 04:48 01/13/18 06:15 White Blood Count 14.11 K/uL Red Blood Count 4.57 M/uL Hemoglobin 13.9 g/dL Hematocrit 39.1 % Mean Corpuscular Volume 85.6 fL Mean Corpuscular Hemoglobin 30.4 pg Mean Corpuscular Hemoglobin Concent 35.5 g/dl Platelet Count 340 K/uL Mean Platelet Volume 8.6 fL Neutrophils (%) (Auto) 73.9 % Lymphocytes (%) (Auto) 15.2 % Monocytes (%) (Auto) 8.9 % Eosinophils (%) (Auto) 0.1 % Basophils (%) (Auto) 0.1 % Neutrophils # (Auto) 10.41 K/uL Lymphocytes # (Auto) 2.15 K/uL Monocytes # (Auto) 1.26 K/uL Eosinophils # (Auto) 0.01 K/uL Basophils # (Auto) 0.02 K/uL RDW Standard Deviation 41.6 fL RDW Coefficient of Variation 13.4 % Immature Granulocyte % (Auto) 1.8 % Immature Granulocyte # (Auto) 0.26 K/uL Nucleated RBC Absolute Count (auto) 0.03 K/uL Nucleated Red Blood Cells % 0.2 % Sodium Level 135 mmol/L 135 mmol/L Potassium Level 2.9 mmol/L 2.9 mmol/L Chloride Level 98 mmol/L 98 mmol/L Carbon Dioxide Level 26 mmol/L 27 mmol/L Anion Gap 11.0 mmol/L 10.0 mmol/L Blood Urea Nitrogen 21 mg/dl 18 mg/dl Creatinine 1.21 mg/dl 1.06 mg/dl Est Creatinine Clear Calc Drug Dose 51.6 ml/min 58.2 ml/min Estimated GFR () 53.6 62.9 Estimated GFR (Non- 46.3 54.3 BUN/Creatinine Ratio 17.6 17.0 Random Glucose 193 mg/dl 127 mg/dl Calcium Level 8.4 mg/dl 8.5 mg/dl Troponin I < 0.015 ng/ml Influenza Type A Antigen Neg for Influ A Influenza Type B Antigen Neg for Influ B Bedside Glucose 138 mg/dl Prothrombin Time 11.1 SECONDS Prothromb Time International Ratio 1.1 Estimated Average Glucose 171 mg/dl Hemoglobin A1c 7.6 % Magnesium Level 1.2 mg/dl Chemistry Specimen Hemolysis Assessment & Plan 1. Acute bronchitis-improved on IV steroids, Levaquin and Duonebs overnight. No wheezing on exam and min oxygen requirement. Decrease to prednisone 40mg daily starting in am. Would recommend PFTs as outpatient once better; none on file. 2. DMII-ISS/carb coverage and glargine. Slightly elevated. Will check and cover her overnight. Decreasing steroids so expect should improve. 3. HTN-holding HCTZ and Norvasc for lower BP. 4. CKD III-at baseline. Renally dose meds. 5. Hypokalemia and hypomagnesemia-replace and recheck in am. 6. h/o breast cancer-cont tamoxifen DVT proph-Lovenox Full Code Dispo-improving, likely home in 1-2 days. Diane Whipple DO [facility] Hospitalist Current Inpatient Medications: Current Inpatient Medications Medications (Trade) Dose Ordered Sig/Luis Route Start Time Stop Time Status Last Admin Dose Admin Enoxaparin Sodium (Lovenox Inj) 30 mg Q12 SQ 01/13/18 09:00 02/12/18 08:59 01/13/18 09:01 30 MG Acetaminophen (Tylenol Tab) 650 mg Q4H PRN PO 01/13/18 02:45 02/12/18 02:44 Polyethylene (Miralax Powder Packet) 17 gm DAILY PRN PO 01/13/18 02:45 02/12/18 02:44 Ondansetron HCl (Zofran Inj) 4 mg Q6H PRN IV 01/13/18 02:45 02/12/18 02:44 Levofloxacin (Levaquin Tab) 750 mg DAILY@11 PO 01/14/18 11:00 01/21/18 10:59 Levalbuterol (Xopenex 1.25MG/ 0.5ML Neb) 1.25 mg Q4H PRN INH 01/13/18 02:45 02/12/18 02:44 Ipratropium [place] (Atrovent 0.02% 0.5MG/2.5ML Neb) 0.5 mg Q4H PRN INH 01/13/18 02:45 02/12/18 02:44 Methylprednisolone Sodium Succinate 40 mg/Syringe 0.64 ml @ 1.5 mls/min Q8H IV 01/13/18 04:00 02/12/18 03:59 01/13/18 04:51 1.5 MLS/MIN Insulin Aspart (novoLOG ASPART) SLIDING SCALE If C... ACHS SC 01/13/18 06:30 02/12/18 06:59 01/13/18 08:48 6 UNITS Glucose (Glucose 40% Gel) 15-30 GRAMS 15 GRAMS... UD PRN PO 01/13/18 03:00 02/12/18 02:59 Glucose (Glucose Chew Tab) 4-8 Tablets 4 Tabl... UD PRN PO 01/13/18 03:00 02/12/18 02:59 Dextrose (Dextrose 50% 50ML Syringe) 25-50ML OF 50% DW IV FOR... UD PRN IV 01/13/18 03:00 02/12/18 02:59 Glucagon (Glucagon Inj) 1 mg UD PRN SQ 01/13/18 03:00 02/12/18 02:59 Aspirin (Ecotrin Tab) 81 mg DAILY PO 01/13/18 09:00 02/12/18 08:59 01/13/18 08:49 81 MG Benzonatate (Tessalon Perles Cap) 200 mg TID PRN PO 01/13/18 03:00 02/12/18 02:59 Codeine Phosphate/ Guaifenesin (Robitussin-AC Sugar Free Syrup) 5 ml TID PRN PO 01/13/18 03:00 02/12/18 02:59 Insulin Glargine (Lantus Solostar Pen) 32 units HS SQ 01/13/18 21:00 02/12/18 20:59 Rosuvastatin Calcium (Crestor Tab) 10 mg DAILY PO 01/13/18 09:00 02/12/18 08:59 01/13/18 08:48 10 MG Tamoxifen Citrate (Nolvadex Tab) 20 mg DAILY PO 01/13/18 09:00 02/12/18 08:59 01/13/18 08:46 20 MG Tramadol HCl (Ultram Tab) 50 mg Q6 PRN PO 01/13/18 03:00 02/12/18 02:59 Pantoprazole Sodium (Protonix Tab) 40 mg DAILY PRN PO 01/13/18 03:00 02/12/18 02:59 Miscellaneous Information (Consult Glycemic Management Pharmacy) 1 ea DAILY PRN N/A 01/13/18 03:22 02/12/18 03:21 Magnesium Sulfate 4 gm/Potassium Chloride 40 meq/ Sodium Chloride 528 ml @ 125 mls/hr Q4H14M IV 01/13/18 08:30 01/13/18 12:43 01/13/18 09:02 125 MLS/HR
[2018-01-14 00:50] LABS: INFLUENZA A PCR Neg for Influ A (NEG); INFLUENZA B PCR Neg for Influ B (NEG)
[2018-01-14] MEDS ORDERED: INSULIN ASPART 100 UNITS/ML 3 ML PEN SC ONE (01:00)
[2018-01-14 06:58] LABS: BASO % 0.2 %; BASO ABS # 0.02 K/uL (0-0.2); HEMATOCRIT 36.4 % (37-47); IG# 0.21 K/uL (0.00-0.02); LYMPH % 11.7 %; LYMPH ABS # 1.46 K/uL (1.2-3.4); MEAN CELL VOLUME 86.1 fL (80-100); MEAN CORPUSCULAR HEMOGLOBIN 30.7 pg (25-34); MEAN CORPUSCULAR HGB CONC 35.7 g/dl (32-36); MEAN PLATELET VOLUME 8.3 fL (7.4-10.4); MONO % 5.6 %; MONO ABS # 0.69 K/uL (0.11-0.59); NEUT % 80.8 %; NEUT ABS # 10.05 K/uL (1.4-6.5); PLATELET COUNT 307 K/uL (130-400); RED CELL DISTRIBUTION WIDTH CV 13.5 % (11.5-14.5); RED CELL DISTRIBUTION WIDTH SD 42.2 fL (36.4-46.3); WHITE BLOOD COUNT 12.43 K/uL (4.8-10.8)
[2018-01-14 07:18] VITALS: BP 120/77; PULSE 90; TEMP 36.4; O2SAT 91
[2018-01-14 07:38] LABS: CALCIUM 8.4 mg/dl (8.5-10.1); CREATININE 0.92 mg/dl (0.60-1.20); POTASSIUM 3.6 mmol/L (3.5-5.1)
[2018-01-14] MEDS: ASPIRIN 81 MG ECTAB PO SCH (07:44)
[2018-01-14] MEDS: TAMOXIFEN CITRATE 10 MG TAB PO SCH (07:45)
[2018-01-14] MEDS: ROSUVASTATIN CALCIUM 10 MG TAB PO SCH (07:45)
[2018-01-14] MEDS: INSULIN ASPART 100 UNITS/ML 3 ML PEN SC SCH ×2 (08:37→12:12)
[2018-01-14] MEDS ORDERED: NURSING DECISION MEDICATION ORDER SCH (09:45)
[2018-01-14] MEDS ORDERED: LEVOFLOXACIN 750 MG TAB PO SCH (11:00)
--- NOTE | 2018-01-14 11:46 | Pharmacy Progress Note ---
Pharmacy Glycemic Short Note 2 Date of Service Jan 14, 2018. OUTPATIENT ANTIDIABETIC REGIMEN: * Lantus 32 units SQ HS ASSESSMENT: * Ms Nina Barragan is a 67 y/o F with a PMH of HTN, CKD stage 3, h/o breast cancer, and reasonably well-controlled diabetes (current HbA1C = 7.6%; goal range per the Elements of Diabetes Care Scoring Scale is 6.6-7.5%). She presents with SOB and is diagnosed with bronchitis. Patient initially started on Solu-Medrol 40 mg IV [id number] and IV levofloxacin. Currently tapered to prednisone 40 mg (first dose today). Patient's blood sugars ranged from 138-287 mg/dL yesterday; she received 85 units of insulin (Lantus 50 units plus 35 of basal insulin). Patient's blood sugar decreased from 248 mg/dL to 139 mg/dL this morning. * The patient is currently receiving more than her home dose of Lantus. Reduce Lantus to home dose with a slightly higher dose available if patient still has hyperglycemia this evening. For Novolog, the patient was started on weight- based stress of 2-3 yesterday. This was not effective. For breakfast-lunch today the patient's blood sugar increased by 60 points. Tighten to weight-based stress of 3. If this remains ineffective consider NPH tomorrow (0.4 units/kg per prednisone 40 mg) PLAN FOR INPATIENT GLYCEMIC CONTROL: * Basal insulin * Lantus 32-40 units SQ HS (give Lantus 32 units if BSG less than 180 mg/dL) * Bolus insulin * NovoLog per scale ACHS or Q6hrs while NPO * Goal Range: Low 110 mg/dL - High 140 mg/dL * Correction Factor: 15 mg/dL/unit * Nutritional / Prandial insulin per carb ratio of 1 unit per 5 grams CHO consumed PLAN FOR DISCHARGE: * patient's HbA1C is reasonably controlled but remains out of goal range... this may be due to the prolonged steroid tapers the patient has been on. Recommend rechecking HbA1C once steroids are finished as would not like to increase insulin while this factor is in play.
[2018-01-14] MEDS ORDERED: SODIUM CHLORIDE 0.65% NA SOLN 45 ML (OCEAN) PRN (12:30)
[2018-01-14] MEDS ORDERED: PRD20 PO (13:46)
[2018-01-14] MEDS ORDERED: LVQ750 PO (13:46)
[2018-01-14] MEDS ORDERED: PSEU1TAB2 PO (13:48)
--- NOTE | 2018-01-14 13:51 | Discharge Summary ---
Discharge Summary Date of Service Jan 14, 2018. Discharge Summary Admission Date: Jan 13, 2018 at 02:08 Discharge Date: Jan 14, 2018 Admission Information HPI (per Admitting provider): Patient is a 67 yo female who presents to the ER tonight for complaints of SOB, cough, wheezing that have been worse today. She reports she has had URI symptoms of nasal congestion, cough intermittently for the last 6 weeks, and is currently on her 3rd course of steroid taper because her symptoms improve and within a week of completing steroids her symptoms return. She reports that her cough is sometimes productive. She states her nasal discharge is clear and occasionally yellow, much like her phlegm when she is able to expectorate. She states she was seen at her PCP's office today and had her abx switched to levaquin. She also states she has nebs and an inhaler which have not made much difference to her symptoms. She reports having some chills but denies any fevers , and also states she has had a headache. She feels her cough has been less productive. Earlier this evening she began having worsening SOB and MIRANDA and felt panicky about not being able to breathe and this prompted her to come to the hospital. Physical Exam (per Admitting): General Appearance: WD/WN, no apparent distress Head: normocephalic, atraumatic Eyes: PERRL, EOMI, sclerae normal ENT: hearing grossly normal Neck: supple, no JVD, no carotid bruits, trachea midline Respiratory/Chest: chest non-tender, no respiratory distress, no accessory muscle use, + decreased breath sounds, + wheezing Cardiovascular: no edema, no gallop, no JVD, no murmur, + tachycardia Abdomen/GI: normal bowel sounds, non tender, soft, no organomegaly Back: normal inspection, no CVA tenderness Extremities/Musculoskelatal: no calf tenderness, no pedal edema, non-tender Neurologic/Psych: no motor/sensory deficits, alert, normal mood/affect, oriented x 3 Skin: normal color, warm/dry, no rash Hospital Course 1. Acute bronchitis-improved on IV steroids, Levaquin and Duonebs overnight. No wheezing on exam and min oxygen requirement. Decrease to prednisone 40mg daily starting in am. Would recommend PFTs as outpatient once better; none on file. 2. DMII-ISS/carb coverage and glargine. Slightly elevated. Will check and cover her overnight. Decreasing steroids so expect should improve. 3. HTN-holding HCTZ and Norvasc for lower BP. 4. CKD III-at baseline. Renally dose meds. 5. Hypokalemia and hypomagnesemia-replace and recheck in am. 6. h/o breast cancer-cont tamoxifen DVT proph-Lovenox Full Code Dispo-improving, likely home in 1-2 days. DO [facility] Total time spent on discharge = This includes examination of the patient, discharge planning, medication reconciliation, and communication with other providers. Discharge Instructions [facility] [address] [place] [address] Discharge Medical Patient Name: Nina Barragan Unit Number: [id number] Date of : 1950 Patient Status: Admitted Inpatient Attending Doctor: Diane Whipple DO DI: Medical v4 Discharge Instructions Date of Service Jan 14, 2018. Admission Reason for Admission: Shortness Of Breath, Wheezing Discharge Discharge Diagnosis / Problem: Acute bronchitis Discharge Goals Goal(s): Prevent Disease Progression Activity Recommendations Activity Limitations: per Instructions/Follow-up section . Instructions / Follow-Up Instructions / Follow-Up Please take all medications as instructed. You have a follow-up appointment with Dr. Nuñez on , 01/20 @ 10:45am for follow-up from this hospitalization. It was a pleasure taking care of you! Call if you have any questions or problems. You can reach a [facility] Hospitalist on duty at [facility] 24 hours a day by calling [phone]. Take care of yourself. DO [facility] Current Hospital Diet Patient's current hospital diet: AHA Diet (Heart Healthy), Diabetes Type 2 Diet Discharge Diet Recommended Diet: AHA Diet (Heart Healthy), Diabetes Type 2 Diet Procedures Procedures Performed: None. Pending Studies Studies pending at discharge: no Laboratory Results Hemoglobin A1c Test 01/13/18 06:15 Range/Units Estimated Average Glucose 171 mg/dl Hemoglobin A1c 7.6 H 4.5-5.6 % Medical Emergencies . Who to Call and When: Medical Emergencies: If at any time you feel your situation is an emergency, please call 911 immediately. . Non-Emergent Contact Non-Emergency issues call your: Primary Care Provider . . "Provider Documentation" section prepared by Diane Whipple. . VTE Core Measure Inpt VTE Proph given/why not?: Enoxaparin (Lovenox)SQ Additional Copies To Brandon Nuñez III, M.D.
[2018-01-14] MEDS ORDERED: FLUT0.15 (13:53)
[2018-01-14 14:01] VITALS: BP 120/77; PULSE 90; TEMP 36.4; O2SAT 91
[2018-01-14] MEDS ORDERED: ENOXAPARIN 40 MG/0.4 ML SYR SQ SCH (21:00)
[2018-01-14] MEDS ORDERED: INSULIN GLARGINE SOLOSTAR 100 UNITS/ML 3 ML PEN SC SCH (21:00)
== END 2018-01-14 14:15 | disposition home or self-care (01) | DRG 192 ==
LOC: C.EDB 23:40 → C.MS2W 01-13 02:08 → ENRESERV 01-13 02:39
PROVIDERS: ADMIT Internal Medicine; ATTEND Hospitalist
DX: J44.0 Chronic obstructive pulmonary disease with (acute) lower respiratory infection (principal); N18.3 Chronic kidney disease, stage 3 (moderate); Z79.82 Long term (current) use of aspirin; Z79.84 Long term (current) use of oral hypoglycemic drugs; Z79.52 Long term (current) use of systemic steroids; Z88.0 Allergy status to penicillin; F17.200 Nicotine dependence, unspecified, uncomplicated; I10 Essential (primary) hypertension; N18.2 Chronic kidney disease, stage 2 (mild); E87.6 Hypokalemia; E11.22 Type 2 diabetes mellitus with diabetic chronic kidney disease; E83.42 Hypomagnesemia; Z85.3 Personal history of malignant neoplasm of breast

== ENCOUNTER 2023-02-16 12:54 | Inpatient (IN) ==
[2023-02-16] MEDS ORDERED: ASPIRIN CHEW 324 MG PO STA (12:57)
[2023-02-16] MEDS ORDERED: SODIUM CHLORIDE 0.9% 1000ML 500 ML IV ONE (13:38)
--- NOTE | 2023-02-16 13:42 | XRay Report ---
XR chest 1V portable HISTORY: Chest pain, nonspecific COMPARISON: Chest 01/13/2018. FINDINGS: The lungs are clear. Cardiac silhouette is normal in size. No pleural effusions. No pneumot horax. Old, healed left-sided rib fractures are noted. Calcifications within the aortic knob. IMPRESSION: No acute process. ACT 112: Negative or not required by law. Electronically signed by: Dada Barillas M.D. 02/16/2023 1:41 PM
[2023-02-16 13:43] LABS: Basophils # (auto) 0.04 K/uL (0-0.2); Basophils % (auto) 0.4 %; Eosinophils # (auto) 0.04 K/uL (0-0.50); Eosinophils % (auto) 0.4 %; Hematocrit (blood only) 38.6 % (37.0-47.0); Hemoglobin 13.2 g/dl (12.0-16.0); Immature Granulocytes # (auto) 0.03 K/uL (0.01-0.20); Immature Granulocytes % (auto) 0.3 %; Lymphocytes # (auto) 1.22 K/uL (1.2-3.4); Lymphocytes % (auto) 13.1 %; Mean Corpuscular Hemoglobin 30.1 pg (25.0-34.0); Mean Corpuscular Hgb Conc 34.2 g/dL (32.0-36.0); Mean Corpuscular Volume 88.1 fL (80.0-100.0); Mean Platelet Volume 9.4 fL (9.4-12.4); Monocytes # (auto) 0.98 K/uL (0.11-0.59); Monocytes % (auto) 10.6 %; Neutrophils # (auto) 6.97 K/uL (1.40-6.50); Neutrophils % (auto) 75.2 %; Platelet Count 258 K/uL (130-400); RDW Coefficient of Variation 14.2 % (11.5-14.5); RDW Standard Deviation 45.3 fL (36.4-46.3); Red Blood Count 4.38 M/uL (4.20-5.40); White Blood Count 9.28 K/ul (4.8-10.8)
--- NOTE | 2023-02-16 13:49 | Electrocardiogram Report ---
Test Reason : Blood Pressure : / mmHG Vent. Rate : 106 BPM Atrial Rate : 106 BPM P-R Int : 172 ms QRS Dur : 100 ms QT Int : 352 ms P-R-T Axes : 078 -51 127 degrees QTc Int : 467 ms Sinus tachycardia Possible Left atrial enlargement RSR' or QR pattern in V1 suggests right ventricular conduction delay Left anterior fascicular block Left ventricular hypertrophy with repolarization abnormality Abnormal ECG When compared with ECG of 23-MAR-2022 08:56, Premature ventricular complexes are no longer Present RSR' pattern in V1 is now Present Confirmed by Maycol Austin ([id number]) on 02/16/2023 1:49:38 PM Referred By: Confirmed By:Maycol Austin
[2023-02-16 14:02] LABS: BUN Creatinine Ratio 16.7 (10-20); Calcium 9.4 mg/dl (8.6-10.3); Creatinine Clr Calc Pharmacy 68.4 ml/min; Est GFR (African American) 80.5 ml/min; Est GFR (Non-African American) 69.4 ml/min; Potassium 3.9 mmol/L (3.5-5.1)
[2023-02-16 14:12] LABS: Troponin I High Sensitivity 556.9 pg/ml (0-14)
[2023-02-16 14:51] LABS: Partial Thromboplastin Ratio 1.1; Partial Thromboplastin Time 29.9 Seconds (21.0-31.0)
--- NOTE | 2023-02-16 14:56 | History & Physical Report ---
Date of Service February 16, 2023 Assessment & Plan (1) Abnormal dobutamine stress echocardiogram: (2) Diabetes mellitus, type 2: (3) Hypertension: (4) Dyslipidemia: (5) Breast cancer: (6) Tobacco use: (7) Depression: (8) Chronic obstructive pulmonary disease: Plan This is a 72-year-old female with PMH of shortness of breath referred to cardiology outpatient for dobutamine stress echo earlier today that was abnormal with concern for LAD territory ischemia/infarction versus stress-induced cardiomyopathy with reduced EF. Patient sent in for further evaluation including cardiac catheterization. Other medical problems include type 2 diabetes, dyslipidemia, h/o lacunar stroke in 2003 with residual lower lip numbness, PVD, asymptomatic resting hypotension, hypomagnesemia, COPD, CKD 3, tobacco use and mood disorder. Abnormal dobutamine stress echo Progressively worsening SOB and throat tightness x 1 mo. Stress echo today with evidence of LAD territory ischemia/infarction versus stress-induced cardiomyopathy with reduced EF 25-29% Sent to [facility] for further evaluation with cardiac catheterization BP 90/56, HR 99, ECG with NSR, LVH and ST abnormality noted in anterior and lateral leads Initial HS troponin 556.9. BNP 376 CXR without acute process Dr. Doyle aware of patient, cards to evaluate. Discussed starting IV heparin for initial management Keeping NPO for now, trend troponin. Currently asymptomatic at rest Given aspirin in ED. Continue statin, losartan, not currently on a beta lisa Carotid stenosis L subclavian stenosis [place] [facility] - tobacco use, h/o bilat mastectomy with BUE claudication Continue aspirin, statin Inaccurate BP reads in BUE - recommend BP checks in legs Type 2 diabetes A1c of 7.2 in Sep 2022. Repeat ordered for AM Hold home agents Basal/bolus regimen while in-patient - currently NPO BSG AC HS Hypertension Continue losartan, recommend BP check in legs Dyslipidemia Continue statin History of breast cancer H/o L breast carcinoma in 2005, recurrent disease met disease in axilla node in 2014, s/p bilateral mastectomy and radiation in 2014 and completion of 5 years tamoxifen. No current tx Follows annually with Dr. Combs of heme/onc Tobacco use Reduced to 4 cigarettes or less per day. Cessation counseling Depression Continue duloxetine COPD Stable. Continue inhaler, recommend smoking cessation DVT Ppx: IV heparin Code status: FULL PCP: S Elena Dispo: Admitted to PCU Patient seen in collaboration with Dr. Thomas. Please see addendum. I spent a total of 80 minutes coordinating, documenting, and providing care for this patient excluding time spent in the performance of separately billed services. History of Present Illness Chief Complaint: chest pain Primary Care Provider: Teja Parker DO This is a 72-year-old female with PMH of shortness of breath referred to cardiology outpatient for dobutamine stress echo earlier today that was abnormal with concern for LAD territory ischemia/infarction versus stress-induced cardiomyopathy with reduced EF. Has been having progressively worsening shortness of breath with exertion and pressure in throat over the past month with any type of exertion. Tried vacuuming last week and had to sit down and rest on 3 separate occasions. States she feels asymptomatic when lying still at rest although needs to be propped upright or she develops orthopnea. Denies any swelling of lower extremities. No lightheadedness, anthony chest pain, near syncope, nausea, vomiting or abdominal pain. Does endorse intermittent palpitations over the past month that resolves on its own. No dysuria, diarrhea or constipation. Denies any known history of coronary artery disease or heart failure. History of tobacco use but has decreased to 4 cigarettes in the past 2 days. Other medical problems include type 2 diabetes, dyslipidemia, PAD, asymptomatic resting hypotension, hypomagnesemia, COPD, CKD 3, tobacco use and mood disorder. Denies any recent medication changes. Stress echo today with evidence of LAD territory ischemia/infarction versus stress-induced cardiomyopathy with reduced EF 25 to 29%. Sent to [facility] for further evaluation with cardiac catheterization. Allergies Allergy/AdvReac Type Severity Reaction Status Date / Time BEBE Inhibitors Allergy Unknown Unknown Verified 03/23/22 11:05 Penicillins Allergy Unknown RASH Verified 03/23/22 11:05 atorvastatin AdvReac Unknown MYALGIA Verified 03/23/22 11:05 Home Medications Medication Instructions Recorded Confirmed Type albuterol sulfate 90 mcg/actuation 1 inh inhalation Q4 PRN Wheezing 12/01/19 02/16/23 History aerosol inhaler (ProAir HFA) cyanocobalamin (vitamin B-12) 1,000 mcg PO QAM 12/01/19 02/16/23 History 1,000 mcg tablet insulin glargine 100 unit/mL 32 unit subcut HS 12/01/19 02/16/23 History subcutaneous solution (Lantus U-100 Insulin) losartan 25 mg tablet 12.5 mg PO QAM 12/01/19 02/16/23 History magnesium 250 mg tablet 500 mg PO QAM 12/01/19 02/16/23 History metformin 1,000 mg tablet 1,000 mg PO BID 12/01/19 02/16/23 History allopurinol 100 mg tablet 200 mg PO QAM 03/23/22 02/16/23 History duloxetine 30 mg capsule,delayed 60 mg PO QAM 03/23/22 02/16/23 History release aspirin 81 mg tablet,delayed 81 mg PO QAM 02/16/23 02/16/23 History release fluticasone propionate 50 2 spray intranasal QAM 02/16/23 02/16/23 History mcg/actuation nasal spray,suspension indomethacin 50 mg capsule 50 mg PO BID PRN Pain 02/16/23 02/16/23 History naproxen 500 mg tablet 500 mg PO BID 02/16/23 02/16/23 History rosuvastatin 20 mg tablet 20 mg PO DAILY 02/16/23 02/16/23 History Past Med/Surg History Medical History (Updated 02/16/23 @ 15:58 by Lulu Cabello PA-C) At risk for lymphedema right arm, happens on occasion Breast cancer 5 yrs ago > had chemo/radiation > no ports Chronic obstructive pulmonary disease well controlled > rare inh use Depression Diabetes mellitus, type 2 IDDM Hyperlipidemia Hypertension Migraine Stress incontinence Tachycardia listed above but patient unaware Transient ischemic attack (TIA) 20-30 yrs ago > no residual effects Surgical History (Updated 02/16/23 @ 15:57 by Lulu Cabello PA-C) History of breast biopsy History of cataract surgery bilat History of cholecystectomy History of colonoscopy History of dilatation and curettage History of mastectomy bilateral > 2014 History of tooth extraction Hx of hernia repair Hx of lymph node excision right axillary S/P right rotator cuff repair Family History Brother Diabetes Brother Diabetes Sister Diabetes Sister Diabetes Social History (Updated 02/16/23 @ 15:49 by Lulu Cabello PA-C) Smoking Status: Current every day smoker Tobacco Type: Cigarettes Cigarettes Per Day: 1/2 ppd -> reduced to a few cigarettes/day; Second Hand Exposure: No; Hx Alcohol Use: No Hx Substance Use: No Preferred Language: Romanian Communication Ability: Effective Facing Grinder Required: No Beliefs That Will Affect Care: None Current Living Situation: Spouse Feels Safe at Home: Yes Assistive Devices: None and Denture - Upper Review of Systems Review of Systems: At least ten systems reviewed and negative except as noted in the HPI. Physical Exam Physical Exam: General Appearance: WD/WN, vitals as above, NAD, sitting up in bed, pleasant, conversing easily Head: normocephalic, atraumatic Eyes: normal inspection, PERRL, conjunctivae normal, anicteric sclerae ENT: external ear and nose normal, oropharynx normal Neck: normal visual inspection, trachea midline, no thyromegaly Respiratory: normal respiratory effort, lungs clear to auscultation, scattered wheezes, no rales or rhonchi. No accessory muscle use Cardiovascular: tachycardic rate, regular rhythm, no murmur appreciated, normal peripheral pulses, no BLE edema Chest: normal inspection of chest Abdomen/GI: normal bowel sounds, soft, nontender, no hepatosplenomegaly Extremities/Musculoskeletal: no cyanosis or clubbing, extremities motor strength 5/5 Neurologic: PERRL, EOMI, accommodation nl, no face palsy, no dysarthria, CN's II-XI intact bilaterally and moves all extremities Psychiatric: A+Ox3, euthymic affect Skin: no rashes, normal color, warm/dry Results & Data Results & Data Vital Signs (Past 12 Hours) Vital Signs Temp Pulse Resp BP Pulse Ox O2 Del Method 02/16/23 14:30 100 H 19 95 Room Air 02/16/23 14:03 93/61 L 02/16/23 14:03 98 H 22 95 Room Air 02/16/23 14:00 96 H 24 96 Room Air 02/16/23 13:30 104 H 19 96 Room Air 02/16/23 14:06 Room Air 02/16/23 13:49 Room Air 02/16/23 13:16 101 H 02/16/23 13:16 37.6 C H 99 H 20 89/60 L 95 Room Air 02/16/23 13:10 Room Air Laboratory Results Short CBC 02/16/23 Range/Units 13:07 WBC 9.28 (4.8-10.8) K/ul Hgb 13.2 (12.0-16.0) g/dl Hct 38.6 (37.0-47.0) % Plt Count 258 (130-400) K/uL BMP 02/16/23 13:07 Sodium 136 Potassium 3.9 Chloride 103 Carbon Dioxide 22 BUN 14 Creatinine 0.84 Glucose 148 H Calcium 9.4 Diagnostic Findings Chest X-Ray 02/16/23 12:57 XR chest 1V portable HISTORY: Chest pain, nonspecific COMPARISON: Chest 01/13/2018. FINDINGS: The lungs are clear. Cardiac silhouette is normal in size. No pleural effusions. No pneumothorax. Old, healed left-sided rib fractures are noted. Calcifications within the aortic knob. IMPRESSION: No acute process. ACT 112: Negative or not required by law. Electronically signed by: Dada Barillas M.D. 02/16/2023 1:41 PM ECG Additional Comments: ECG reviewed - NSR, LVH, ST abnormality in anterior and lateral leads Supervising Physician Co-Signing Physician Notes Attending addendum: The patient was seen and examined in emergency room in presence of the She was sent in from cardiology office for cardiac cath down the line She has been complaining of shortness of breath with exertion and neck tightness with exertion that she has to take rest or discontinue what ever she is doing to prevent it Denies any chest pain and/or palpitation Upon examination Lying in bed comfortably Denies any chest pain or shortness of breath at rest Blood pressure on the lower side at 92/66 otherwise hemodynamically stable Chestdecreased breath sounds without any crackles and or wheezing HeartS1-S2, regular Abdomenbenign Extremities-no edema [employer]-alert, awake and oriented x3. No focal sensory or motor deficit appreciated Her admission labs, EKG and imaging studies reviewed She has significant EKG changes involving anterolateral ischemia with T inve rsion, increasing troponin She does have NSTEMI, unstable angina/angina equivalent Will start intravenous heparin and her other medications including beta-blockade and aspirin will be continued Cardiology consulted and she will have cardiac cath tomorrow morning Agree with assessment and plan as outlined above by KRISTA Busch Dr
--- NOTE | 2023-02-16 18:01 | Emergency Department Note ---
History of Present Illness General Chief complaint: Cardiac Assessment Stated complaint: SOB, CHEST PAIN Time Seen by Provider: 02/16/23 12:57 History of Present Illness Provider complaint: Positive stress test 72-year-old female presents emergency department from [facility] for positive stress test. Patient reports she has been having chest pain shortness of breath and orthopnea. Home Medications Medication Instructions Recorded Confirmed Type albuterol sulfate 90 mcg/actuation 1 inh inhalation Q4 PRN Wheezing 12/01/19 02/16/23 History aerosol inhaler (ProAir HFA) cyanocobalamin (vitamin B-12) 1,000 mcg PO QAM 12/01/19 02/16/23 History 1,000 mcg tablet insulin glargine 100 unit/mL 32 unit subcut HS 12/01/19 02/16/23 History subcutaneous solution (Lantus U-100 Insulin) losartan 25 mg tablet 12.5 mg PO QAM 12/01/19 02/16/23 History magnesium 250 mg tablet 500 mg PO QAM 12/01/19 02/16/23 History metformin 1,000 mg tablet 1,000 mg PO BID 12/01/19 02/16/23 History allopurinol 100 mg tablet 200 mg PO QAM 03/23/22 02/16/23 History duloxetine 30 mg capsule,delayed 60 mg PO QAM 03/23/22 02/16/23 History release aspirin 81 mg tablet,delayed 81 mg PO QAM 02/16/23 02/16/23 History release fluticasone propionate 50 2 spray intranasal QAM 02/16/23 02/16/23 History mcg/actuation nasal spray,suspension indomethacin 50 mg capsule 50 mg PO BID PRN Pain 02/16/23 02/16/23 History naproxen 500 mg tablet 500 mg PO BID 02/16/23 02/16/23 History rosuvastatin 20 mg tablet 20 mg PO DAILY 02/16/23 02/16/23 History Allergies Allergy/AdvReac Type Severity Reaction Status Date / Time BEBE Inhibitors Allergy Unknown Unknown Verified 03/23/22 11:05 Penicillins Allergy Unknown RASH Verified 03/23/22 11:05 atorvastatin AdvReac Unknown MYALGIA Verified 03/23/22 11:05 Past Med/Surg History Medical History At risk for lymphedema right arm, happens on occasion Breast cancer 5 yrs ago > had chemo/radiation > no ports Chronic obstructive pulmonary disease well controlled > rare inh use Depression Diabetes mellitus, type 2 IDDM Hyperlipidemia Hypertension Migraine Stress incontinence Tachycardia listed above but patient unaware Transient ischemic attack (TIA) 20-30 yrs ago > no residual effects Surgical History History of breast biopsy History of cataract surgery bilat History of cholecystectomy History of colonoscopy History of dilatation and curettage History of mastectomy bilateral > 2015 History of tooth extraction Hx of hernia repair Hx of lymph node excision right axillary S/P right rotator cuff repair Family History Brother Diabetes Brother Diabetes Sister Diabetes Sister Diabetes Social History Smoking Status: Current every day smoker Tobacco Type: Cigarettes Cigarettes Per Day: 1/2 ppd -> reduced to a few cigarettes/day; Second Hand Exposure: No; Hx Alcohol Use: No Hx Substance Use: No Preferred Language: Croatian Communication Ability: Effective Loading Rack Supervisor Required: No Beliefs That Will Affect Care: None Current Living Situation: Spouse Feels Safe at Home: Yes Assistive Devices: None and Denture - Upper Physical Exam Vital Signs Vital Signs - 24 hr 02/16/23 13:10 02/16/23 13:16 02/16/23 13:16 Temperature 37.6 C H Temperature Source Temporal Artery Scan Pulse Rate 99 H 101 H Pulse Rate from SpO2 Sensor Respiratory Rate 20 Respiratory Effort / Characteristics Non-Labored Spontaneous Non-Labored Spontaneous Respiratory Depth Normal Normal Blood Pressure 89/60 L Blood Pressure [Left Thigh] Blood Pressure Mean 69 Blood Pressure Mean [Left Thigh] Pulse Oximetry 95 Oxygen Delivery Method Room Air Room Air Sepsis Recent Fever Within 48 Hours No Sepsis New/Unexplained Change in Mental Status N/A Sepsis Action Taken by Nursing No Action Required 02/16/23 13:49 02/16/23 14:06 02/16/23 13:30 Temperature Temperature Source Pulse Rate 104 H Pulse Rate from SpO2 Sensor 105 H Respiratory Rate 19 Respiratory Effort / Characteristics Respiratory Depth Blood Pressure Blood Pressure [Left Thigh] Blood Pressure Mean Blood Pressure Mean [Left Thigh] Pulse Oximetry 96 Oxygen Delivery Method Room Air Room Air Room Air Sepsis Recent Fever Within 48 Hours Sepsis New/Unexplained Change in Mental Status Sepsis Action Taken by Nursing 02/16/23 14:00 02/16/23 14:03 02/16/23 14:03 Temperature Temperature Source Pulse Rate 96 H 98 H Pulse Rate from SpO2 Sensor 101 H 98 H Respiratory Rate 24 22 Respiratory Effort / Characteristics Respiratory Depth Blood Pressure 93/61 L Blood Pressure [Left Thigh] Blood Pressure Mean 71 Blood Pressure Mean [Left Thigh] Pulse Oximetry 96 95 Oxygen Delivery Method Room Air Room Air Sepsis Recent Fever Within 48 Hours Sepsis New/Unexplained Change in Mental Status Sepsis Action Taken by Nursing 02/16/23 14:30 02/16/23 15:10 02/16/23 15:12 Temperature Temperature Source Pulse Rate 100 H 99 H Pulse Rate from SpO2 Sensor 100 H Respiratory Rate 19 14 Respiratory Effort / Characteristics Respiratory Depth Blood Pressure 90/56 L Blood Pressure [Left Thigh] Blood Pressure Mean 67 Blood Pressure Mean [Left Thigh] Pulse Oximetry 95 Oxygen Delivery Method Room Air Sepsis Recent Fever Within 48 Hours Sepsis New/Unexplained Change in Mental Status Sepsis Action Taken by Nursing 02/16/23 15:12 02/16/23 15:30 02/16/23 16:00 Temperature Temperature Source Pulse Rate 99 H 99 H 98 H Pulse Rate from SpO2 Sensor 99 H 98 H 99 H Respiratory Rate 23 18 22 Respiratory Effort / Characteristics Respiratory Depth Blood Pressure Blood Pressure [Left Thigh] Blood Pressure Mean Blood Pressure Mean [Left Thigh] Pulse Oximetry 95 98 93 Oxygen Delivery Method Room Air Room Air Room Air Sepsis Recent Fever Within 48 Hours Sepsis New/Unexplained Change in Mental Status Sepsis Action Taken by Nursing 02/16/23 16:01 02/16/23 16:02 02/16/23 16:02 Temperature Temperature Source Pulse Rate 100 H 98 H Pulse Rate from SpO2 Sensor 101 H 99 H Respiratory Rate 24 24 Respiratory Effort / Characteristics Respiratory Depth Blood Pressure 90/66 L Blood Pressure [Left Thigh] Blood Pressure Mean 74 Blood Pressure Mean [Left Thigh] Pulse Oximetry 97 95 Oxygen Delivery Method Room Air Room Air Sepsis Recent Fever Within 48 Hours Sepsis New/Unexplained Change in Mental Status Sepsis Action Taken by Nursing 02/16/23 16:30 02/16/23 17:00 02/16/23 17:05 Temperature Temperature Source Pulse Rate 97 H 100 H Pulse Rate from SpO2 Sensor 96 H 99 H Respiratory Rate 24 20 Respiratory Effort / Characteristics Respiratory Depth Blood Pressure Blood Pressure [Left Thigh] 152/74 H Blood Pressure Mean Blood Pressure Mean [Left Thigh] 100 Pulse Oximetry 95 96 Oxygen Delivery Method Room Air Room Air Sepsis Recent Fever Within 48 Hours Sepsis New/Unexplained Change in Mental Status Sepsis Action Taken by Nursing 02/16/23 17:30 Temperature Temperature Source Pulse Rate 100 H Pulse Rate from SpO2 Sensor Respiratory Rate Respiratory Effort / Characteristics Respiratory Depth Blood Pressure Blood Pressure [Left Thigh] Blood Pressure Mean Blood Pressure Mean [Left Thigh] Pulse Oximetry Oxygen Delivery Method Sepsis Recent Fever Within 48 Hours Sepsis New/Unexplained Change in Mental Status Sepsis Action Taken by Nursing Physical Exam GENERAL: oriented to person, place, and time. appears well-developed and well- nourished. HENT: Exam performed. - Head: Normocephalic and atraumatic. EYES: Conjunctivae and EOM are normal. Right eye exhibits no discharge. Left eye exhibits no discharge. No scleral icterus. NECK: Normal range of motion. Neck supple. No JVD present. CV: Normal rate, regular rhythm, normal heart sounds and intact distal pulses. There is no peripheral edema. Palpable radial pulses bue. PULM/CHEST: Effort normal and breath sounds normal. No respiratory distress. No stridor. no wheezes. no rales. ABD: The abdomen is soft. There is no tenderness. NEURO: Motor and sensation grossly intact. SKIN: Skin is warm and dry. He is not diaphoretic. PSYCH: normal mood and affect. Behavior is normal. Judgment and thought content normal. Course Course 1213: Received a call from Dr. Ferny Ramos cardiology. He states that the patient had a stress echo done which showed a new cardiomyopathy and ejection fraction of 25%. He states the patient will need to be admitted to the hospitalist team and does not cardiology will consult for catheterization. Patient will arrive via EMS. 1257: The patient was evaluated in room C3. A complete history and physical exam was performed Cardiac monitoring: An order was placed for continuous cardiac monitoring. The monitor shows a rate of 110 with sinus tachycardia rhythm interpreted by nd 1450: Vital signs stable. Troponin elevated 556.9 BNP elevated at 376. Chest x-ray negative. Patient will be admitted to [facility] hospitalist and cardiology will evaluate the patient. Administered Medications Discontinued Medications Aspirin (Aspirin Chew 324 Mg) 324 mg PO NOW STA Stop: 02/16/23 12:58 Last Admin: 02/16/23 13:08 Dose: 324 mg Documented By: CJS Sodium Chloride (Nss 1000ml) 500 mls @ 999 mls/hr IV .Q31M ONE Stop: 02/16/23 14:08 Last Infusion: 02/16/23 14:17 Dose: 0 mls/hr Documented By: Admin: 02/16/23 13:46 Dose: 999 mls/hr Documented By: MICHAEL Medical Decision Making Medical Records Attestation: I reviewed the patient's medical records. Laboratory Data Attestation: I reviewed the patient's lab results. 02/16/23 13:07 02/16/23 13:07 Lab Results 02/16/23 02/16/23 02/16/23 Range/Units 13:07 13:07 13:07 WBC 9.28 (4.8-10.8) K/ul RBC 4.38 (4.20-5.40) M/uL Hgb 13.2 (12.0-16.0) g/dl Hct 38.6 (37.0-47.0) % MCV 88.1 (80.0-100.0) fL MCH 30.1 (25.0-34.0) pg MCHC 34.2 (32.0-36.0) g/dL RDW Std Deviation 45.3 (36.4-46.3) fL RDW Coeff of Pito 14.2 (11.5-14.5) % Plt Count 258 (130-400) K/uL MPV 9.4 (9.4-12.4) fL Immature Gran % (Auto) 0.3 % Neut % (Auto) 75.2 % Lymph % (Auto) 13.1 % [place] % (Auto) 10.6 % Eos % (Auto) 0.4 % Baso % (Auto) 0.4 % Neut # (Auto) 6.97 H (1.40-6.50) K/uL Lymph # (Auto) 1.22 (1.2-3.4) K/uL [place] # (Auto) 0.98 H (0.11-0.59) K/uL Eos # (Auto) 0.04 (0-0.50) K/uL Baso # (Auto) 0.04 (0-0.2) K/uL Immature Gran # (Auto) 0.03 (0.01-0.20) K/uL PT Cancelled INR Cancelled APTT Cancelled PTT Ratio Cancelled Sodium 136 (136-145) mmol/L Potassium 3.9 (3.5-5.1) mmol/L Chloride 103 (98-107) mmol/L Carbon Dioxide 22 (21-32) mmol/L Anion Gap 11 (3-11) BUN 14 (6-23) mg/dl Creatinine 0.84 (0.6-1.2) mg/dl Est Cr Clr Drug Dosing 68.4 ml/min Est GFR ( Amer) 80.5 ml/min Est GFR (Non-Af Amer) 69.4 ml/min BUN/Creatinine Ratio 16.7 (10-20) Glucose 148 H (70-99(Fasting)) mg/dl Calcium 9.4 (8.6-10.3) mg/dl Troponin I High Sens 556.9 H* (0-14) pg/ml B-Natriuretic Peptide (0-100) pg/ml Lipase 21 (11-82) U/L SARS-CoV-2, RNA, NAAT (NEGATIVE) 02/16/23 02/16/23 02/16/23 Range/Units 13:07 13:07 14:10 WBC (4.8-10.8) K/ul RBC (4.20-5.40) M/uL Hgb (12.0-16.0) g/dl Hct (37.0-47.0) % MCV (80.0-100.0) fL MCH (25.0-34.0) pg MCHC (32.0-36.0) g/dL RDW Std Deviation (36.4-46.3) fL RDW Coeff of Pito (11.5-14.5) % Plt Count (130-400) K/uL MPV (9.4-12.4) fL Immature Gran % (Auto) % Neut % (Auto) % Lymph % (Auto) % [place] % (Auto) % Eos % (Auto) % Baso % (Auto) % Neut # (Auto) (1.40-6.50) K/uL Lymph # (Auto) (1.2-3.4) K/uL [place] # (Auto) (0.11-0.59) K/uL Eos # (Auto) (0-0.50) K/uL Baso # (Auto) (0-0.2) K/uL Immature Gran # (Auto) (0.01-0.20) K/uL PT 11.0 INR 1.0 APTT 29.9 PTT Ratio 1.1 Sodium (136-145) mmol/L Potassium (3.5-5.1) mmol/L Chloride (98-107) mmol/L Carbon Dioxide (21-32) mmol/L Anion Gap (3-11) BUN (6-23) mg/dl Creatinine (0.6-1.2) mg/dl Est Cr Clr Drug Dosing ml/min Est GFR ( Amer) ml/min Est GFR (Non-Af Amer) ml/min BUN/Creatinine Ratio (10-20) Glucose (70-99(Fasting)) mg/dl Calcium (8.6-10.3) mg/dl Troponin I High Sens (0-14) pg/ml B-Natriuretic Peptide 376 H (0-100) pg/ml Lipase (11-82) U/L SARS-CoV-2, RNA, NAAT NEGATIVE (NEGATIVE) Imaging Data Attestation: I personally reviewed and interpreted this imaging study as follows: My Impression: Chest x-ray negative. Airway clear. No pneumothorax. No consolidation. No cardiomegaly or cephalization.. No free air under the diaphragm. No fractures of the skeletal structures. Radiologist's Impression: Chest X-Ray 02/16/23 12:57 XR chest 1V portable HISTORY: Chest pain, nonspecific COMPARISON: Chest 01/13/2018. FINDINGS: The lungs are clear. Cardiac silhouette is normal in size. No pleural effusions. No pneumothorax. Old, healed left-sided rib fractures are noted. Calcifications within the aortic knob. IMPRESSION: No acute process. ACT 112: Negative or not required by law. Electronically signed by: Dada Barillas M.D. 02/16/2023 1:41 PM ECG Data Attestation: I personally reviewed and interpreted this ECG as follows: Indication: + chest pain Rate (beats per minute): 106 Rhythm: + sinus tachycardia ECG Intervals/blocks: + Normal QRS, + Normal AL and + Normal QT-c ECG ST segments: + Normal ST segments and + T-wave inversions (T wave inversion in leads V4, V5, V6) ECG Findings: + LVH Comparison ECG Date: from (EKG on February 15, 2023) Change: no significant change [facility] Narrative 1213: Received a call from Dr. Ferny Ramos cardiology. He states that the patient had a stress echo done which showed a new cardiomyopathy and ejection fraction of 25%. He states the patient will need to be admitted to the hospitalist team and does not cardiology will consult for catheterization. Patient will arrive via EMS. 1257: The patient was evaluated in room C3. A complete history and physical exam was performed Cardiac monitoring: An order was placed for continuous cardiac monitoring. The monitor shows a rate of 110 with sinus tachycardia rhythm interpreted by me 1450: Vital signs stable. Troponin elevated 556.9 BNP elevated at 376. Chest x-ray negative. Patient will be admitted to [facility] hospitalist and cardiology will evaluate the patient. Impression & Plan Chest pain, Abnormal dobutamine stress echocardiogram Discharge Plan Visit Data Chief Complaint: Cardiac Assessment Stated Complaint: SOB, CHEST PAIN ED Provider: Josiah Arango Discharge Problem: Chest pain, Abnormal dobutamine stress echocardiogram Patient Disposition: Admitted As Inpatient Forms Stand Alone Forms: [facility] Prescriptions Prescriptions: No Action insulin glargine [Lantus U-100 Insulin] 100 unit/mL Solution 32 unit SUBCUT HS cyanocobalamin (vitamin B-12) 1,000 mcg Tablet 1,000 mcg PO QAM metformin 1,000 mg Tablet 1,000 mg PO BID losartan 25 mg Tablet 12.5 mg PO QAM albuterol sulfate [ProAir HFA] 90 mcg/actuation Hfa Aerosol Inhaler 1 inh INHALATION Q4 PRN (Reason: Wheezing) magnesium 250 mg Tablet 500 mg PO QAM allopurinol 100 mg Tablet 200 mg PO QAM duloxetine 30 mg Capsule,Delayed Release(Dr/Ec) 60 mg PO QAM aspirin [Aspirin Low-Strength] 81 mg Tablet,Delayed Release (Dr/Ec) 81 mg PO QAM fluticasone propionate [Flonase] 50 mcg/actuation [place],Suspension 2 spray INTRANASAL QAM Rx Instructions: administer into each nostril rosuvastatin 20 mg Tablet 20 mg PO DAILY indomethacin 50 mg Capsule 50 mg PO BID PRN (Reason: Pain) Rx Instructions: administer with food or milk naproxen 500 mg Tablet 500 mg PO BID Referrals Referrals: Teja Parker DO [Primary Care Provider] -
[2023-02-16] MEDS ORDERED: DEXTROSE 50% 50 ML SYRINGE IV PRN (19:38)
[2023-02-16] MEDS ORDERED: GLUCOSE 40% GEL 15 GM TUBE PO PRN (19:38)
[2023-02-16] MEDS ORDERED: POLYETHYLENE (MIRALAX) 17 GM PACK PO PRN (19:38)
[2023-02-16] MEDS ORDERED: CARBOHYDRATES FOR HYPOGLYCEMIA PO PRN (19:38)
[2023-02-16] MEDS ORDERED: PHARMACY GLYCEMIC MGMT CONSULT PRN (19:38)
[2023-02-16] MEDS ORDERED: GLUCOSE 10 TAB/TUBE PO PRN (19:38)
[2023-02-16] MEDS ORDERED: GLUCAGON FOR INJ 1 MG VIAL SQ PRN (19:38)
[2023-02-16] MEDS ORDERED: ALBUTEROL HFA 8 GM INHALER INH PRN (19:38)
[2023-02-16] MEDS ORDERED: ACETAMINOPHEN 325 MG TAB PO PRN (19:38)
[2023-02-16] MEDS ORDERED: ONDANSETRON INJ 2 MG/ML 2 ML VIAL IV PRN (19:38)
[2023-02-16] MEDS ORDERED: LANTUS PER UNIT CHARGE SQ STA (20:48)
[2023-02-16] MEDS: INSULIN ASPART PER UNIT CHARGE SC SCH (20:55)
[2023-02-16] MEDS ORDERED: Heparin IV Adult Wt-Based Standard WITH Bolus Protocol IV SCH (21:43)
[2023-02-16] MEDS ORDERED: HEPARIN SOD (PORCINE) 1000 UNIT/ML IV ONE (22:45)
[2023-02-16] MEDS: HEPARIN SODIUM/DEXTROSE 25,000 UNITS/500 ML BAG IV SCH (22:49)
[2023-02-16] MEDS ORDERED: cloNIDine HCL 0.1 MG TAB PO ONE (23:47)
[2023-02-17 00:05] LABS: Magnesium 1.4 mg/dl (1.7-2.4)
[2023-02-17] MEDS ORDERED: XOPENEX/ATROVENT 1.25mg/0.5MG NEB COMBO NEB STA (00:14)
[2023-02-17] MEDS ORDERED: LEVALBUTEROL 1.25MG/0.5ML NEB INH STA (00:23)
[2023-02-17] MEDS ORDERED: IPRATROPIUM BROMIDE NEB SOLN 0.02% 2.5 ML VIAL INH STA (00:24)
[2023-02-17] MEDS ORDERED: FUROSEMIDE INJ 20 MG/2 ML VIAL IV ONE (00:30)
[2023-02-17 01:02] LABS: HCO3 ABG 24 mmol/L (19-24); Oxygen Saturation ABG 96.3 % (90-95); PCO2 ABG 31 mmHg (35-46); PO2 ABG 118 mmHg (80-95); pH ABG 7.49 (7.35-7.45)
[2023-02-17 01:13] LABS: Allen Test Pos (Pos)
[2023-02-17] MEDS: MAGNESIUM SULFATE / D5W 1 GM/100 ML BAG IV SCH ×3 (01:20→05:11)
[2023-02-17 06:07] LABS: Hematocrit (blood only) 36.6 % (37.0-47.0); Hemoglobin 12.2 g/dl (12.0-16.0); Mean Corpuscular Hemoglobin 29.6 pg (25.0-34.0); Mean Corpuscular Hgb Conc 33.3 g/dL (32.0-36.0); Mean Corpuscular Volume 88.8 fL (80.0-100.0); Mean Platelet Volume 9.3 fL (9.4-12.4); Platelet Count 268 K/uL (130-400); RDW Coefficient of Variation 14.2 % (11.5-14.5); RDW Standard Deviation 46.1 fL (36.4-46.3); Red Blood Count 4.12 M/uL (4.20-5.40); White Blood Count 8.46 K/ul (4.8-10.8)
[2023-02-17 06:25] LABS: BUN Creatinine Ratio 14.2 (10-20); Calcium 8.9 mg/dl (8.6-10.3); Chol HDL Ratio 2.3 (0-5); Creatinine Clr Calc Pharmacy 48.7 ml/min; Est GFR (African American) 55.8 ml/min; Est GFR (Non-African American) 48.2 ml/min; Potassium 3.7 mmol/L (3.5-5.1)
[2023-02-17 06:32] LABS: Partial Thromboplastin Ratio > 5.1
[2023-02-17 06:34] LABS: Troponin I High Sensitivity 1166.6 pg/ml (0-14)
[2023-02-17 06:36] LABS: Partial Thromboplastin Time > 139.0 Seconds (21.0-31.0)
[2023-02-17 07:44] LABS: Estimated Average Glucose 148 mg/dl; Hemoglobin A1C 6.8 % (4.5-5.6)
[2023-02-17] MEDS: LOSARTAN POTASSIUM 25 MG TAB PO SCH (08:01)
[2023-02-17] MEDS: ROSUVASTATIN CALCIUM 20 MG TAB PO SCH (08:01)
[2023-02-17] MEDS: allopurinoL 100 MG TAB PO SCH (08:02)
[2023-02-17] MEDS: ASPIRIN 81 MG ECTAB PO SCH (08:02)
[2023-02-17] MEDS: CYANOCOBALAMIN (B-12) 500 MCG TABLET PO SCH (08:02)
[2023-02-17] MEDS: MAGNESIUM OXIDE 400 MG TAB PO SCH (08:02)
[2023-02-17] MEDS: DULoxetine HCL 60 MG CAP PO SCH (08:02)
[2023-02-17] MEDS: FLUTICASONE PROPIONATE NA SPR 16 GM BTL NAE SCH (08:03)
[2023-02-17 08:12] LABS: Partial Thromboplastin Ratio 1.3; Partial Thromboplastin Time 36.5 Seconds (21.0-31.0)
--- NOTE | 2023-02-17 08:36 | XRay Report ---
SINGLE VIEW CHEST CLINICAL HISTORY: Hypoxia. FINDINGS: An AP, portable, upright chest radiograph is compared to study dated 02/16/2023 and correlat ed with chest CT dated 12/10/2017. The examination is degraded by portable technique, apical lordotic positioning, and patient rotation. The heart is top normal for projection noting atherosclerotic yasmani cification of the thoracic aorta. Emphysema and chronic interstitial thickening is similar to previou s. Scarring/atelectasis is noted at the lung bases. No airspace consolidation or large pleural effusi on is identified. No pneumothorax is seen. The skeletal structures are osteopenic. There is a chronic left 7th rib fracture. IMPRESSION: Emphysematous change with no acute cardiopulmonary abnormality. ACT 112: Negative or not required by law. Electronically signed by: Andriy Desouza M.D. 02/17/2023 8:34 AM
--- NOTE | 2023-02-17 09:04 | Cardiology Consultation ---
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 We will ask Dr. Caputo to perform diagnostic cardiac catheterization on the patient, he was kind enough to accept Further recommendations to follow History of Present Illness Reason for Consultation: abnormal stress test Requesting Physician: ALLEN Attending Physician: Ancelmo Romero MD History of Present Illness Ms. Barragan is a 73-year-old woman sent to [facility] emergency department on 02/16/2023 from our cardiology office after outpatient resting echocardiogram came back severely abnormal. The patient was referred for dobutamine stress echocardiogram by her PCP to evaluate unstable angina. Resting study revealed LAD territory ischemia/infarct versus stress-induced cardiomyopathy with an ejection fraction of 25 to 29%, stress portion obviously aborted. Patient with no known previous history of coronary artery disease but severe peripheral vascular disease and ongoing tobacco abuse. States that she has been having exertional shortness of breath and throat discomfort for the last several weeks. States that symptoms have been progressively worsening. Admitted to telemetry overnight with no further symptoms. Patient currently seen and examined in Medical Surgery Nurse waiting area. 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 Left subclavian artery occlusion 3. Smoker 4. HTN. 5. Dyslipidemia. 6. COPD. 7. IDDM. 8. Obesity. 9. Arthritis. 10. H/O breast cancer. S/p bilateral mastectomy. 11. CVA, lacunar infact 2003. 12. Carotid occlusive disease Allergies Allergy/AdvReac Type Severity Reaction Status Date / Time BEBE Inhibitors Allergy Unknown Unknown Verified 03/23/22 11:05 Penicillins Allergy Unknown RASH Verified 03/23/22 11:05 atorvastatin AdvReac Unknown MYALGIA Verified 03/23/22 11:05 Home Medications Medication Instructions Recorded Confirmed Type albuterol sulfate 90 mcg/actuation 1 inh inhalation Q4 PRN Wheezing 12/01/19 02/16/23 History aerosol inhaler (ProAir HFA) cyanocobalamin (vitamin B-12) 1,000 mcg PO QAM 12/01/19 02/16/23 History 1,000 mcg tablet insulin glargine 100 unit/mL 32 unit subcut HS 12/01/19 02/16/23 History subcutaneous solution (Lantus U-100 Insulin) losartan 25 mg tablet 12.5 mg PO QAM 12/01/19 02/16/23 History magnesium 250 mg tablet 500 mg PO QAM 12/01/19 02/16/23 History metformin 1,000 mg tablet 1,000 mg PO BID 12/01/19 02/16/23 History allopurinol 100 mg tablet 200 mg PO QAM 03/23/22 02/16/23 History duloxetine 30 mg capsule,delayed 60 mg PO QAM 03/23/22 02/16/23 History release aspirin 81 mg tablet,delayed 81 mg PO QAM 02/16/23 02/16/23 History release fluticasone propionate 50 2 spray intranasal QAM 02/16/23 02/16/23 History mcg/actuation nasal spray,suspension indomethacin 50 mg capsule 50 mg PO BID PRN Pain 02/16/23 02/16/23 History naproxen 500 mg tablet 500 mg PO BID 02/16/23 02/16/23 History rosuvastatin 20 mg tablet 20 mg PO DAILY 02/16/23 02/16/23 History Patient History Medical History At risk for lymphedema right arm, happens on occasion Breast cancer 5 yrs ago > had chemo/radiation > no ports Chronic obstructive pulmonary disease well controlled > rare inh use Depression Diabetes mellitus, type 2 IDDM Hyperlipidemia Hypertension Migraine Stress incontinence Tachycardia listed above but patient unaware Transient ischemic attack (TIA) 20-30 yrs ago > no residual effects Surgical History History of breast biopsy History of cataract surgery bilat History of cholecystectomy History of colonoscopy History of dilatation and curettage History of mastectomy bilateral > 2014 History of tooth extraction Hx of hernia repair Hx of lymph node excision right axillary S/P right rotator cuff repair Family History Brother Diabetes Brother Diabetes Sister Diabetes Sister Diabetes Social History Smoking Status: Current some day smoker Tobacco Type: Cigarettes Cigarettes Per Day: 2; Second Hand Exposure: No; Do You Dip or Chew Tobacco: No; Tobacco Cessation Education Requested by Patient: No Hx Alcohol Use: No Hx Substance Use: No Preferred Language: Greenlandic Communication Ability: Effective Banking Officer Required: No Beliefs That Will Affect Care: None Current Living Situation: Spouse Other Information That Helps Us Care for You: No Feels Safe at Home: Yes Safety Concerns: Feels Safe At This Time Assistive Devices: Denture - Upper and Glasses Assistive Devices Comment: reading glasses at home Review of Systems Review of Systems: All systems reviewed & are unremarkable except as noted in HPI & below Physical Exam Physical Exam: General: Awake, alert and oriented x 3. No acute distress. HEENT: Normocephalic, atraumatic. Pupils equal, round and reactive to light and accommodation. Extraocular muscles are intact. Anicteric sclera. Moist mucous membranes. Neck: No JVD. No bruit. Cardiovascular: Regular. Positive S-4. Normal S-1 and S-2. No S-3. No murmurs or rubs. Pulmonary: Clear to auscultation B/L. No rales, rhonchi or wheezing Abdomen: Bowel sounds x 4, soft. No rebound, guarding or tenderness. No organomegaly. Extremities: No clubbing, cyanosis or edema. +2 pedal pulses bilaterally. Skin: Warm and dry. Results & Data Vital Signs (Past 12 Hours) Vital Signs Temp Pulse Pulse Resp BP BP Pulse Ox 02/17/23 07:05 36.4 C L 79 18 108/53 L 95 02/16/23 22:00 104 H 02/17/23 03:55 36.5 C 81 18 105/61 96 02/17/23 00:59 105 H 17 156/83 H 94 02/17/23 00:40 76 20 94 02/16/23 23:46 119 H 19 93 02/16/23 23:20 37.5 C 125 H 25 H 177/77 H 93 O2 Del Method O2 Flow Rate 02/17/23 07:05 Nasal Cannula 3 02/16/23 22:00 02/17/23 03:55 Nasal Cannula 3 02/17/23 00:59 Nasal Cannula 3 02/17/23 00:40 Nasal Cannula 5 02/16/23 23:46 Nasal Cannula 5 02/16/23 23:20 Room Air Diagnostic Findings 2D echocardiogram report 02/16/23. The qualitative LV ejection fraction is 25-29% (severely reduced). There is a large sized apical, septal, anteroseptal, anterior, posterior, and lateral wall motion abnormality with hypokinesis to akinesis of the segments. The right ventricular cavity size is normal (basal dimension < 4.2 cm RV apical 4 chamber view). The right ventricular systolic function is qualitatively normal. No significant valvular disease is present. Upper extremity doppler report 09/17/22: IMPRESSION: The right wrist brachial index (WBI) is 0.9 . Wrist brachial index was unable to be calculated due to medial calcinosis. For the right upper extremity: Upper extremity arterial occlusive disease suggested by low blood pressure and waveform abnormality. The left wrist brachial index (WBI) is 1.0. For the left upper extremity: Upper extremity arterial occlusive disease suggested by low blood pressure and waveform abnormality. 06/27/21: CTA Carotid: Severe R innominate disease. Mild R bifurcation/ICA d isease. Mild L carotid disease. L subclavian occlusion. Atretic R vert. Robust L vert. Read by radiology as: Near complete occlusion of the innominate artery at its ostium. Severe R vertebral artery ostial stenosis. L subclavian artery occlusion. (7) Chest pain Chest pain type: unspecified Qualified Code(s): R07.9 - Chest pain, unspecified
[2023-02-17 09:46] LABS: Partial Thromboplastin Ratio 1.4; Partial Thromboplastin Time 38.4 Seconds (21.0-31.0)
--- NOTE | 2023-02-17 10:35 | Pharmacy Report ---
Pharmacy Glycemic Short Note 2 - Date of Service February 17, 2023 - Glycemic Short BSG Results (Last 24 hours): 02/16/23 02/16/23 02/17/23 13:07 20:38 05:29 Glucose 148 H 270 H POC Glucose 175 H 02/17/23 07:25 Glucose POC Glucose 132 H OUTPATIENT ANTIDIABETIC REGIMEN: * Metformin 1000 mg BID A1C 6.8% 02/17/23 ASSESSMENT: * MOOK is a 73-year-old female with PMH of T2DM on admission for Heart failure * Yesterday, BSG range from 148 - 175 mg/dL. Received Total insulin of 12 units (of which 10 was basal) * FBSG today is 132 mg/dL which is within goal range * Currently NPO - will decrease basal by 30% and trend BSG PLAN FOR INPATIENT GLYCEMIC CONTROL: * Hold outpatient oral diabetes medications * Basal insulin * Lantus 7 units SQ HS * Bolus insulin * NovoLog per scale ACHS or Q6hrs while NPO * Goal Range: Low 110 mg/dL - High 140 mg/dL * Correction Factor: 25 mg/dL/unit * Nutritional / Prandial insulin per carb ratio of 1 unit per 9 grams CHO consumed
[2023-02-17] MEDS ORDERED: HEPARIN (PORCINE) 1000 UNIT/ML 10 ML (CATH LAB USE ONLY) ONE (10:50)
[2023-02-17] MEDS ORDERED: MIDAZOLAM HCL 1 MG/ML 2ML VIAL ONE (10:50)
[2023-02-17] MEDS ORDERED: niCARdipine HCL INJ 2.5 MG/ML 10 ML AMP ONE (10:51)
[2023-02-17] MEDS ORDERED: fentaNYL citrate PF 100 MCG/2 ML VIAL ONE (10:51)
[2023-02-17] MEDS ORDERED: NITROGLYCERIN/D5W 100MCG/ML 20ML SYR ONE (10:52)
--- NOTE | 2023-02-17 11:12 | Hospitalist Progress Note ---
Date of Service February 17, 2023 Assessment & Plan (1) Abnormal dobutamine stress echocardiogram: (2) Diabetes mellitus, type 2: (3) Hypertension: (4) Dyslipidemia: (5) Breast cancer: (6) Tobacco use: (7) Depression: (8) Chronic obstructive pulmonary disease: Plan 72-year-old F with hx of shortness of breath referred to cardiology outpatient for dobutamine stress echo earlier today that was abnormal with concern for LAD territory ischemia/infarction versus stress-induced cardiomyopathy with reduced EF. Patient sent in for further evaluation including cardiac catheterization. Other medical problems include type 2 diabetes, dyslipidemia, h/o lacunar stroke in 2003 with residual lower lip numbness, PVD, asymptomatic resting hypotension, hypomagnesemia, COPD, CKD 3, tobacco use and mood disorder. Abnormal dobutamine stress echo Progressively worsening SOB and throat tightness x 1 mo. Stress echo done as outpt - with evidence of LAD territory ischemia/infarction versus stress-induced cardiomyopathy with reduced EF 25-29% Sent to [facility] for further evaluation with cardiac catheterization BP 90/56, HR 99, ECG with NSR, LVH and ST abnormality noted in anterior and lateral leads Initial HS troponin 556.9. BNP 376 CXR without acute process Dr. Doyle aware of patient - cardiology consulted Discussed starting IV heparin for initial management Given aspirin in ED Troponin now in 1100 Currently asymptomatic at rest Continue statin, losartan, not currently on a beta lisa Plan for cardiac cath today Carotid stenosis L subclavian stenosis Following with [facility] vascular service - tobacco use, h/o bilat mastectomy with BUE claudication Continue aspirin, statin Inaccurate BP reads in BUE - recommend BP checks in legs Type 2 diabetes A1c of 7.2 in Sep 2022. Repeat ordered for AM Hold home agents Basal/bolus regimen while in-patient - currently NPO BSG AC HS Hypertension Continue losartan, recommend BP check in legs Dyslipidemia Continue statin History of breast cancer H/o L breast carcinoma in 2005, recurrent disease met disease in axilla node in 2014, s/p bilateral mastectomy and radiation in 2014 and completion of 5 years tamoxifen. No current tx Follows annually with Dr. Combs of heme/onc Tobacco use Reduced to 4 cigarettes or less per day. Cessation counseling Depression Continue duloxetine COPD Stable. Continue inhaler, recommend smoking cessation DVT Ppx: IV heparin Code status: FULL PCP: Dr. Jluis Parker Dispo: Admitted to PCU Admission and Anticipated Discharge Date Admission Date: February 16, 2023 Subjective Pt seen in follow up of NSTEMI - presents after abnormal stress test, found to have elev. troponin, hx of shortness of breath w/ exertion for a month Started on IV heparin on admission Plan for cardiac cath today Currently in bed, in no acute distress. Currently denies any chest pain or shortness of breath. She is on supplemental oxygen, which she does not use at home. No abdominal pain, nausea vomiting. No fevers chills Review of Systems Review of Systems: All systems reviewed & are unremarkable except as noted in Subjective Physical Exam Physical Exam: General Appearance:WD/WN, F laying in bed, in NAD Head: normocephalic, atraumatic Eyes:normal inspection, PERRL, conjunctivae normal, anicteric sclerae ENT: external ear and nose normal Neck: normal visual inspection Respiratory:normal respiratory effort, lungs clear to auscultation, scattered wheezes, no rales or rhonchi. No accessory muscle use Cardiovascular: rrr, no murmur appreciated, normal peripheral pulses, no BLE edema Chest: normal inspection of chest Abdomen/GI: normal bowel sounds, soft, nontender, obese Extremities/Musculoskeletal:moves extremities Neurologic: PERRL, EOMI, no face palsy, no dysarthria, moves all extremities Psychiatric:A+Ox3, euthymic affect Skin: no rashes, normal color, warm/dry Results & Data Results & Data Vital Signs (Past 12 Hours) Vital Signs Temp Pulse Pulse Resp BP BP Pulse Ox 02/17/23 10:41 86 20 87/55 L 98 02/17/23 08:00 92 H 02/17/23 07:05 36.4 C L 79 18 108/53 L 95 02/17/23 03:55 36.5 C 81 18 105/61 96 02/17/23 00:59 105 H 17 156/83 H 94 02/17/23 00:40 76 20 94 02/16/23 23:46 119 H 19 93 02/16/23 23:20 37.5 C 125 H 25 H 177/77 H 93 O2 Del Method O2 Flow Rate 02/17/23 10:41 Nasal Cannula 3 02/17/23 08:00 02/17/23 07:05 Nasal Cannula 3 02/17/23 03:55 Nasal Cannula 3 02/17/23 00:59 Nasal Cannula 3 02/17/23 00:40 Nasal Cannula 5 02/16/23 23:46 Nasal Cannula 5 02/16/23 23:20 Room Air Laboratory Results 02/17/23 02/17/23 02/17/23 Range/Units 09:09 07:31 07:25 WBC (4.8-10.8) K/ul RBC (4.20-5.40) M/uL Hgb (12.0-16.0) g/dl Hct (37.0-47.0) % MCV (80.0-100.0) fL MCH (25.0-34.0) pg MCHC (32.0-36.0) g/dL RDW Std Deviation (36.4-46.3) fL RDW Coeff of Pito (11.5-14.5) % Plt Count (130-400) K/uL MPV (9.4-12.4) fL Immature Gran % (Auto) % Neut % (Auto) % Lymph % (Auto) % [place] % (Auto) % Eos % (Auto) % Baso % (Auto) % Neut # (Auto) (1.40-6.50) K/uL Lymph # (Auto) (1.2-3.4) K/uL [place] # (Auto) (0.11-0.59) K/uL Eos # (Auto) (0-0.50) K/uL Baso # (Auto) (0-0.2) K/uL Immature Gran # (Auto) (0.01-0.20) K/uL PT INR APTT 38.4 H 36.5 H PTT Ratio 1.4 1.3 ABG pH (7.35-7.45) ABG pCO2 (35-46) mmHg ABG pO2 (80-95) mmHg ABG HCO3 (19-24) mmol/L ABG O2 Saturation (90-95) % ABG Base Excess (-9-1.8) mEq/L Jair Test (Pos) Oxygen Given Sodium (136-145) mmol/L Potassium (3.5-5.1) mmol/L Chloride (98-107) mmol/L Carbon Dioxide (21-32) mmol/L Anion Gap (3-11) BUN (6-23) mg/dl Creatinine (0.6-1.2) mg/dl Est Cr Clr Drug Dosing ml/min Est GFR ( Amer) ml/min Est GFR (Non-Af Amer) ml/min BUN/Creatinine Ratio (10-20) Glucose (70-99(Fasting)) mg/dl POC Glucose 132 H (70-99) mg/dl Estimat Average Glucose mg/dl Hemoglobin A1c (4.5-5.6) % Calcium (8.6-10.3) mg/dl Magnesium (1.7-2.4) mg/dl Troponin I High Sens (0-14) pg/ml B-Natriuretic Peptide (0-100) pg/ml Triglycerides (0-150) mg/dl Cholesterol (0-200) mg/dl LDL Cholesterol, Calc mg/dl VLDL Cholesterol, Calc (0-30) mg/dl HDL Cholesterol mg/dl Cholesterol/HDL Ratio (0-5) Lipase (11-82) U/L SARS-CoV-2, RNA, NAAT (NEGATIVE) 02/17/23 02/17/23 02/17/23 Range/Units 05:29 05:29 05:29 WBC 8.46 (4.8-10.8) K/ul RBC 4.12 L (4.20-5.40) M/uL Hgb 12.2 (12.0-16.0) g/dl Hct 36.6 L (37.0-47.0) % MCV 88.8 (80.0-100.0) fL MCH 29.6 (25.0-34.0) pg MCHC 33.3 (32.0-36.0) g/dL RDW Std Deviation 46.1 (36.4-46.3) fL RDW Coeff of Pito 14.2 (11.5-14.5) % Plt Count 268 (130-400) K/uL MPV 9.3 L (9.4-12.4) fL Immature Gran % (Auto) % Neut % (Auto) % Lymph % (Auto) % [place] % (Auto) % Eos % (Auto) % Baso % (Auto) % Neut # (Auto) (1.40-6.50) K/uL Lymph # (Auto) (1.2-3.4) K/uL [place] # (Auto) (0.11-0.59) K/uL Eos # (Auto) (0-0.50) K/uL Baso # (Auto) (0-0.2) K/uL Immature Gran # (Auto) (0.01-0.20) K/uL PT INR APTT PTT Ratio ABG pH (7.35-7.45) ABG pCO2 (35-46) mmHg ABG pO2 (80-95) mmHg ABG HCO3 (19-24) mmol/L ABG O2 Saturation (90-95) % ABG Base Excess (-9-1.8) mEq/L Jair Test (Pos) Oxygen Given Sodium 131 L (136-145) mmol/L Potassium 3.7 (3.5-5.1) mmol/L Chloride 98 (98-107) mmol/L Carbon Dioxide 24 (21-32) mmol/L Anion Gap 9 (3-11) BUN 16 (6-23) mg/dl Creatinine 1.13 (0.6-1.2) mg/dl Est Cr Clr Drug Dosing 48.7 ml/min Est GFR ( Amer) 55.8 ml/min Est GFR (Non-Af Amer) 48.2 ml/min BUN/Creatinine Ratio 14.2 (10-20) Glucose 270 H (70-99(Fasting)) mg/dl POC Glucose (70-99) mg/dl Estimat Average Glucose 148 mg/dl Hemoglobin A1c 6.8 H (4.5-5.6) % Calcium 8.9 (8.6-10.3) mg/dl Magnesium (1.7-2.4) mg/dl Troponin I High Sens 1166.6 H* D (0-14) pg/ml B-Natriuretic Peptide (0-100) pg/ml Triglycerides 108 (0-150) mg/dl Cholesterol 105 (0-200) mg/dl LDL Cholesterol, Calc 37 mg/dl VLDL Cholesterol, Calc 22 (0-30) mg/dl HDL Cholesterol 46 mg/dl Cholesterol/HDL Ratio 2.3 (0-5) Lipase (11-82) U/L SARS-CoV-2, RNA, NAAT (NEGATIVE) 02/17/23 02/17/23 02/17/23 Range/Units 05:29 00:49 00:43 WBC (4.8-10.8) K/ul RBC (4.20-5.40) M/uL Hgb (12.0-16.0) g/dl Hct (37.0-47.0) % MCV (80.0-100.0) fL MCH (25.0-34.0) pg MCHC (32.0-36.0) g/dL RDW Std Deviation (36.4-46.3) fL RDW Coeff of Pito (11.5-14.5) % Plt Count (130-400) K/uL MPV (9.4-12.4) fL Immature Gran % (Auto) % Neut % (Auto) % Lymph % (Auto) % [place] % (Auto) % Eos % (Auto) % Baso % (Auto) % Neut # (Auto) (1.40-6.50) K/uL Lymph # (Auto) (1.2-3.4) K/uL [place] # (Auto) (0.11-0.59) K/uL Eos # (Auto) (0-0.50) K/uL Baso # (Auto) (0-0.2) K/uL Immature Gran # (Auto) (0.01-0.20) K/uL PT INR APTT > 139.0 H* PTT Ratio > 5.1 ABG pH 7.49 H (7.35-7.45) ABG pCO2 31 L (35-46) mmHg ABG pO2 118 H (80-95) mmHg ABG HCO3 24 (19-24) mmol/L ABG O2 Saturation 96.3 H (90-95) % ABG Base Excess 1.0 (-9-1.8) mEq/L Jair Test Pos (Pos) Oxygen Given 5L Sodium (136-145) mmol/L Potassium (3.5-5.1) mmol/L Chloride (98-107) mmol/L Carbon Dioxide (21-32) mmol/L Anion Gap (3-11) BUN (6-23) mg/dl Creatinine (0.6-1.2) mg/dl Est Cr Clr Drug Dosing ml/min Est GFR ( Amer) ml/min Est GFR (Non-Af Amer) ml/min BUN/Creatinine Ratio (10-20) Glucose (70-99(Fasting)) mg/dl POC Glucose (70-99) mg/dl Estimat Average Glucose mg/dl Hemoglobin A1c (4.5-5.6) % Calcium (8.6-10.3) mg/dl Magnesium (1.7-2.4) mg/dl Troponin I High Sens 594.6 H* (0-14) pg/ml B-Natriuretic Peptide (0-100) pg/ml Triglycerides (0-150) mg/dl Cholesterol (0-200) mg/dl LDL Cholesterol, Calc mg/dl VLDL Cholesterol, Calc (0-30) mg/dl HDL Cholesterol mg/dl Cholesterol/HDL Ratio (0-5) Lipase (11-82) U/L SARS-CoV-2, RNA, NAAT (NEGATIVE) 02/16/23 02/16/23 02/16/23 Range/Units 20:38 19:54 14:10 WBC (4.8-10.8) K/ul RBC (4.20-5.40) M/uL Hgb (12.0-16.0) g/dl Hct (37.0-47.0) % MCV (80.0-100.0) fL MCH (25.0-34.0) pg MCHC (32.0-36.0) g/dL RDW Std Deviation (36.4-46.3) fL RDW Coeff of Pito (11.5-14.5) % Plt Count (130-400) K/uL MPV (9.4-12.4) fL Immature Gran % (Auto) % Neut % (Auto) % Lymph % (Auto) % [place] % (Auto) % Eos % (Auto) % Baso % (Auto) % Neut # (Auto) (1.40-6.50) K/uL Lymph # (Auto) (1.2-3.4) K/uL [place] # (Auto) (0.11-0.59) K/uL Eos # (Auto) (0-0.50) K/uL Baso # (Auto) (0-0.2) K/uL Immature Gran # (Auto) (0.01-0.20) K/uL PT 11.0 INR 1.0 APTT 29.9 PTT Ratio 1.1 ABG pH (7.35-7.45) ABG pCO2 (35-46) mmHg ABG pO2 (80-95) mmHg ABG HCO3 (19-24) mmol/L ABG O2 Saturation (90-95) % ABG Base Excess (-9-1.8) mEq/L Jair Test (Pos) Oxygen Given Sodium (136-145) mmol/L Potassium (3.5-5.1) mmol/L Chloride (98-107) mmol/L Carbon Dioxide (21-32) mmol/L Anion Gap (3-11) BUN (6-23) mg/dl Creatinine (0.6-1.2) mg/dl Est Cr Clr Drug Dosing ml/min Est GFR ( Amer) ml/min Est GFR (Non-Af Amer) ml/min BUN/Creatinine Ratio (10-20) Glucose (70-99(Fasting)) mg/dl POC Glucose 175 H (70-99) mg/dl Estimat Average Glucose mg/dl Hemoglobin A1c (4.5-5.6) % Calcium (8.6-10.3) mg/dl Magnesium (1.7-2.4) mg/dl Troponin I High Sens 536.8 H* (0-14) pg/ml B-Natriuretic Peptide (0-100) pg/ml Triglycerides (0-150) mg/dl Cholesterol (0-200) mg/dl LDL Cholesterol, Calc mg/dl VLDL Cholesterol, Calc (0-30) mg/dl HDL Cholesterol mg/dl Cholesterol/HDL Ratio (0-5) Lipase (11-82) U/L SARS-CoV-2, RNA, NAAT (NEGATIVE) 02/16/23 02/16/23 02/16/23 Range/Units 13:07 13:07 13:07 WBC (4.8-10.8) K/ul RBC (4.20-5.40) M/uL Hgb (12.0-16.0) g/dl Hct (37.0-47.0) % MCV (80.0-100.0) fL MCH (25.0-34.0) pg MCHC (32.0-36.0) g/dL RDW Std Deviation (36.4-46.3) fL RDW Coeff of Pito (11.5-14.5) % Plt Count (130-400) K/uL MPV (9.4-12.4) fL Immature Gran % (Auto) % Neut % (Auto) % Lymph % (Auto) % [place] % (Auto) % Eos % (Auto) % Baso % (Auto) % Neut # (Auto) (1.40-6.50) K/uL Lymph # (Auto) (1.2-3.4) K/uL [place] # (Auto) (0.11-0.59) K/uL Eos # (Auto) (0-0.50) K/uL Baso # (Auto) (0-0.2) K/uL Immature Gran # (Auto) (0.01-0.20) K/uL PT INR APTT PTT Ratio ABG pH (7.35-7.45) ABG pCO2 (35-46) mmHg ABG pO2 (80-95) mmHg ABG HCO3 (19-24) mmol/L ABG O2 Saturation (90-95) % ABG Base Excess (-9-1.8) mEq/L Jair Test (Pos) Oxygen Given Sodium 136 (136-145) mmol/L Potassium 3.9 (3.5-5.1) mmol/L Chloride 103 (98-107) mmol/L Carbon Dioxide 22 (21-32) mmol/L Anion Gap 11 (3-11) BUN 14 (6-23) mg/dl Creatinine 0.84 (0.6-1.2) mg/dl Est Cr Clr Drug Dosing 68.4 ml/min Est GFR ( Amer) 80.5 ml/min Est GFR (Non-Af Amer) 69.4 ml/min BUN/Creatinine Ratio 16.7 (10-20) Glucose 148 H (70-99(Fasting)) mg/dl POC Glucose (70-99) mg/dl Estimat Average Glucose mg/dl Hemoglobin A1c (4.5-5.6) % Calcium 9.4 (8.6-10.3) mg/dl Magnesium 1.4 L (1.7-2.4) mg/dl Troponin I High Sens 556.9 H* (0-14) pg/ml B-Natriuretic Peptide 376 H (0-100) pg/ml Triglycerides (0-150) mg/dl Cholesterol (0-200) mg/dl LDL Cholesterol, Calc mg/dl VLDL Cholesterol, Calc (0-30) mg/dl HDL Cholesterol mg/dl Cholesterol/HDL Ratio (0-5) Lipase 21 (11-82) U/L SARS-CoV-2, RNA, NAAT NEGATIVE (NEGATIVE) 02/16/23 02/16/23 Range/Units 13:07 13:07 WBC 9.28 (4.8-10.8) K/ul RBC 4.38 (4.20-5.40) M/uL Hgb 13.2 (12.0-16.0) g/dl Hct 38.6 (37.0-47.0) % MCV 88.1 (80.0-100.0) fL MCH 30.1 (25.0-34.0) pg MCHC 34.2 (32.0-36.0) g/dL RDW Std Deviation 45.3 (36.4-46.3) fL RDW Coeff of Pito 14.2 (11.5-14.5) % Plt Count 258 (130-400) K/uL MPV 9.4 (9.4-12.4) fL Immature Gran % (Auto) 0.3 % Neut % (Auto) 75.2 % Lymph % (Auto) 13.1 % [place] % (Auto) 10.6 % Eos % (Auto) 0.4 % Baso % (Auto) 0.4 % Neut # (Auto) 6.97 H (1.40-6.50) K/uL Lymph # (Auto) 1.22 (1.2-3.4) K/uL [place] # (Auto) 0.98 H (0.11-0.59) K/uL Eos # (Auto) 0.04 (0-0.50) K/uL Baso # (Auto) 0.04 (0-0.2) K/uL Immature Gran # (Auto) 0.03 (0.01-0.20) K/uL PT Cancelled INR Cancelled APTT Cancelled PTT Ratio Cancelled ABG pH (7.35-7.45) ABG pCO2 (35-46) mmHg ABG pO2 (80-95) mmHg ABG HCO3 (19-24) mmol/L ABG O2 Saturation (90-95) % ABG Base Excess (-9-1.8) mEq/L Jair Test (Pos) Oxygen Given Sodium (136-145) mmol/L Potassium (3.5-5.1) mmol/L Chloride (98-107) mmol/L Carbon Dioxide (21-32) mmol/L Anion Gap (3-11) BUN (6-23) mg/dl Creatinine (0.6-1.2) mg/dl Est Cr Clr Drug Dosing ml/min Est GFR ( Amer) ml/min Est GFR (Non-Af Amer) ml/min BUN/Creatinine Ratio (10-20) Glucose (70-99(Fasting)) mg/dl POC Glucose (70-99) mg/dl Estimat Average Glucose mg/dl Hemoglobin A1c (4.5-5.6) % Calcium (8.6-10.3) mg/dl Magnesium (1.7-2.4) mg/dl Troponin I High Sens (0-14) pg/ml B-Natriuretic Peptide (0-100) pg/ml Triglycerides (0-150) mg/dl Cholesterol (0-200) mg/dl LDL Cholesterol, Calc mg/dl VLDL Cholesterol, Calc (0-30) mg/dl HDL Cholesterol mg/dl Cholesterol/HDL Ratio (0-5) Lipase (11-82) U/L SARS-CoV-2, RNA, NAAT (NEGATIVE) Medications Administered Current Inpatient Medications Acetaminophen (Acetaminophen 325 Mg Tab) 650 mg PO Q4H PRN PRN Reason: Pain or Fever Stop: 03/18/23 19:37 Albuterol (Albuterol Hfa 8 Gm Inhaler) 1 puffs INH Q4 PRN PRN Reason: Wheezing Stop: 03/18/23 19:37 Allopurinol (Allopurinol 100 Mg Tab) 200 mg PO [facility] Stop: 03/19/23 08:59 Last Admin: 02/17/23 08:02 Dose: 200 mg Aspirin (Aspirin 81 Mg Ectab) [facility] Stop: 03/19/23 08:59 Last Admin: 02/17/23 08:02 Dose: 81 mg Cyanocobalamin (Cyanocobalamin (B-12) 500 Mcg Tablet) 1,000 mcg [facility] Stop: 03/19/23 08:59 Last Admin: 02/17/23 08:02 Dose: 1,000 mcg Dextrose (Dextrose 50% 50 Ml Syringe) 25 - 50 ml IV UD PRN; Protocol PRN Reason: Hypoglycemia Protocol Stop: 03/18/23 19:37 Duloxetine HCl (Duloxetine Hcl 60 Mg Cap) 60 mg PO [facility] Stop: 03/19/23 08:59 Last Admin: 02/17/23 08:02 Dose: 60 mg Fluticasone Propionate (Fluticasone Propionate Na Spr 16 Gm Btl) 2 sprays [facility] Stop: 03/19/23 08:59 Last Admin: 02/17/23 08:03 Dose: 2 sprays Glucagon (Glucagon For Inj 1 Mg Vial) 1 mg SQ UD PRN; Protocol PRN Reason: Hypoglycemia Protocol Stop: 03/18/23 19:37 Glucose (Glucose 10 Tab/Tube) 4 - 8 tab PO UD PRN; Protocol PRN Reason: Hypoglycemia Treatment Stop: 03/18/23 19:37 Glucose (Glucose 40% Gel 15 Gm Tube) 15 - 30 gm PO UD PRN; Protocol PRN Reason: Hypoglycemia Protocol Stop: 03/18/23 19:37 Heparin Sodium/Dextrose (Heparin Sodium/Dextrose) 25,000 units in 500 mls @ 18 mls/hr IV .Q24H IVANIA; Protocol Stop: 03/18/23 22:44 Last Titration: 02/17/23 08:50 Dose: 900 units/hr, 18 mls/hr Insulin Aspart (Insulin Aspart Per Unit Charge) 0 units SC Q6 IVANIA Stop: 03/18/23 20:59 Insulin Glargine (Lantus Per Unit Charge) 7 units SQ HS ONE Stop: 02/17/23 21:01 Losartan Potassium (Losartan Potassium 25 Mg Tab) 12.5 mg [facility] [place] Stop: 03/19/23 08:59 Last Admin: 02/17/23 08:01 Dose: 12.5 mg Magnesium Oxide (Magnesium Oxide 400 Mg Tab) 400 [facility] [place] Stop: 03/19/23 08:59 Last Admin: 02/17/23 08:02 Dose: 400 mg Miscellaneous (Carbohydrates For Hypoglycemia ) 15 - 30 gm PO UD PRN PRN Reason: Hypoglycemia Protocol Stop: 03/18/23 19:37 Miscellaneous Information (Pharmacy Glycemic Mgmt Consult) 1 each N/A UD PRN PRN Reason: Consult Stop: 03/18/23 19:37 Ondansetron HCl (Ondansetron Inj 2 Mg/Ml 2 Ml Vial) 4 mg IV Q6H PRN PRN Reason: Nausea Stop: 03/18/23 19:37 Polyethylene Glycol (Polyethylene (Miralax) 17 Gm Pack) 17 gm PO DAILY PRN PRN Reason: Constipation Stop: 03/18/23 19:37 Rosuvastatin Calcium (Rosuvastatin Calcium 20 Mg Tab) 20 mg PO DAILY COUNTS INCLUDE 234 BEDS AT THE [facility] Stop: 03/19/23 08:59 Last Admin: 02/17/23 08:01 Dose: 20 mg
--- NOTE | 2023-02-17 11:53 | Post Anesthesia Assessment ---
Date of Service February 17, 2023 Post Sedation Assessment Vital Signs Temp Pulse Pulse Resp BP BP BP 02/17/23 10:41 86 20 87/55 L 02/17/23 08:00 92 H 02/17/23 07:05 97.5 F L 79 18 108/53 L 02/16/23 22:00 104 H 02/16/23 19:30 118 H 02/17/23 03:55 97.7 F 81 18 105/61 02/17/23 00:59 105 H 17 02/17/23 00:40 76 20 02/16/23 23:46 119 H 19 02/16/23 23:20 99.5 F 125 H 25 H 02/16/23 19:25 02/16/23 19:25 97.9 F 109 H 17 158/81 H 02/16/23 20:00 118 H 02/16/23 19:13 02/16/23 19:04 108 H 14 02/16/23 18:00 02/16/23 17:30 99 H 23 02/16/23 17:30 100 H 02/16/23 17:05 152/74 H 02/16/23 17:00 100 H 20 02/16/23 16:30 97 H 24 02/16/23 16:02 90/66 L 02/16/23 16:02 98 H 24 02/16/23 16:01 100 H 24 02/16/23 16:00 98 H 22 02/16/23 15:30 99 H 18 02/16/23 15:12 99 H 23 02/16/23 15:12 90/56 L 02/16/23 15:10 99 H 14 02/16/23 14:30 100 H 19 02/16/23 14:03 93/61 L 02/16/23 14:03 98 H 22 02/16/23 14:00 96 H 24 02/16/23 13:30 104 H 19 02/16/23 14:06 02/16/23 13:49 02/16/23 13:16 101 H 02/16/23 13:16 99.7 F H 99 H 20 89/60 L 02/16/23 13:10 BP BP Pulse Ox O2 Del Method O2 Flow Rate 02/17/23 10:41 98 Nasal Cannula 3 02/17/23 08:00 02/17/23 07:05 95 Nasal Cannula 3 02/16/23 22:00 02/16/23 19:30 02/17/23 03:55 96 Nasal Cannula 3 02/17/23 00:59 156/83 H 94 Nasal Cannula 3 02/17/23 00:40 94 Nasal Cannula 5 02/16/23 23:46 93 Nasal Cannula 5 02/16/23 23:20 177/77 H 93 Room Air 02/16/23 19:25 Room Air 02/16/23 19:25 93 Room Air 02/16/23 20:00 02/16/23 19:13 Room Air 02/16/23 19:04 103/56 L 95 Room Air 02/16/23 18:00 95 Room Air 02/16/23 17:30 94 Room Air 02/16/23 17:30 02/16/23 17:05 02/16/23 17:00 96 Room Air 02/16/23 16:30 95 Room Air 02/16/23 16:02 02/16/23 16:02 95 Room Air 02/16/23 16:01 97 Room Air 02/16/23 16:00 93 Room Air 02/16/23 15:30 98 Room Air 02/16/23 15:12 95 Room Air 02/16/23 15:12 02/16/23 15:10 02/16/23 14:30 95 Room Air 02/16/23 14:03 02/16/23 14:03 95 Room Air 02/16/23 14:00 96 Room Air 02/16/23 13:30 96 Room Air 02/16/23 14:06 Room Air 02/16/23 13:49 Room Air 02/16/23 13:16 02/16/23 13:16 95 Room Air 02/16/23 13:10 Room Air Recovery Score Activity: Moves 4 extremities Respiration: Deep Breath/Cough Circulation: +/-20% PreAnes Value Consciousness: Fully Awake Oxygen Saturation: O2 needed for >90% Discharge Sedation Level of Care: Fast Track Phase II Post Sedation Plan On clinical assessment, the patient appears to have tolerated the sedation without complications. Patient is recovering as anticipated. Patient will continue to be monitored by nursing and may be discharged when sedation discharge criteria are met per below protocol. Upon Completions of procedure up to 15 minutes continue every 5 minute vital signs and the P.A.R. score; then discharge to a Phase I or Fast Track to Phase II per the following guidelines: * Discharge Patient to appropriate Phase II area if PAR is 8 or greater or return to pre- procedure baseline. The post - procedure orders will be as directed. * If PAR score is less than 8 or not return to pre-procedure baseline then patient will follow Phase I monitoring till PAR is reached for Phase II. The Phase I may be done in procedure room or may call to secure a Phase I area. * If naloxone or flumazenil are used for reversal, hold in Phase I for continued monitoring from when last reversal dose was given for a minimum of 60 minutes or longer pending the nurse and/or physician discretion of patient condition before discharge to Phase II. Please call the Sedation Physician to re-evaluate and complete post-note for discharge to Phase II area. Do NOT discharge from procedure sedation or Phase 1 until post- sedation evaluation note is complete by procedure /sedation MD Sedation Discharge Instructions to be given to the patient at discharge to home.
[2023-02-17] MEDS ORDERED: INSULIN ASPART PER UNIT CHARGE SC SCH (12:00)
--- NOTE | 2023-02-17 12:02 | Cardiac Catheterization ---
[facility] Data: [employer] Cardiac Status Clinical evaluation leading to the procedure CAD Presenation: Non STEMI Anginal Classification: CCS III Diagnostic Physicians Name: Kodak Caputo MD Closure Device Recommendations: CABG Cardiac Cath Procedure Full Procedure Date February 17, 2023 Pre-Procedure Diagnosis Pre-Procedure Diagnosis: Non STEMI, Positive Stress Test and Cardiomyopathy AUC Score AUC Score: 8 Post-Procedure Diagnosis Post-Procedure Diagnosis: Severe CAD and Normal Intracardiac Pressures Procedure(s) Performed Procedure(s) Performed: Coronary Angiography, Left Heart Cath and Ultrasound Guided Vascular Access Accounts Payable Analyst Kodak Caputo MD Breakfast Hostess(s) Pipe Line Gauger Estimated Blood Loss Estimated Blood Loss: 5 Medication(s) Medication(s): Fentanyl, Lidocaine 1%, Nicardipine, Nitroglycerin and Versed Summary of Findings Indication: Accelerating angina, cardiomyopathy, type 2 diabetes, PAD Access: 6 Fr right radial artery under ultrasound guidance Catheters: [place] Findings: LM -calcified, 50% ostial, 95% distal stenosis at bifurcation extending into LAD/high D1 and ostial circumflex LAD -medium caliber, 40-50 % earlymid segment stenosis just after D2, remainder of vessel without significant disease. High D1 with 70% ostial disease. Medium D2 70% stenosis at bifurcation and mid segment Circumflex -small to medium caliber, 80% ostial stenosis, mid to distal luminal regularities. RCA -dominant, large caliber, 70% ostial stenosis, focal calcified nodule in earlymid segment with 60% stenosis. Distal vessel, PDA without significant disease LVEDP -17 Pullback gradient across brachiocephalic trunk55 mmHg Arterial Closure: TR band Summary: 1. Severe multivessel coronary artery disease -50% ostial, 95% distal left main extending into bifurcation 40-50% earlymid LAD. 70% ostial high D1, 70% mid D2 80% ostial circumflex 70% ostial RCA, 60% nodular earlymid RCA stenosis 2. Normal intracardiac filling pressure 3. Brachiocephalic artery stenosispullback gradient 55 mmHg Recommendations: Transfer to [facility] for consideration of CABG Hemodynamics Rest Ao:: 117/59/109 Final Ao: 129/61/102 LV: 123/17 Recommendations Recommendations: CABG Specimens Specimens: None Radiation Exposure (mGy) 503 Contrast (mls) 50 Anesthesia Moderate 5301-3099 Procedural Complication(s) None Disposition PCU I attest to the content of the Intraoperative Record and any orders documented therein. Any exceptions are noted below. [facility] Card Cath Procedure Codes Cardiac Catheterization Procedure 1: Cardiovascular Cath Procedures: 51721 Coronaries and LHC (+/-LV) Therapeutic Services & Ancillary Procedure 1: Cardiovascular Tx and Anc Procedures: 66502 Ultrasonic Guidance Vascular Access Moderate Sedation Procedure 1: Sedation/Anesthesia: 97197 Mod Sedation by the same physician;Init15 Min Child Age 5 & Up PG Care Time/CCT Total # of Minutes Spent Total Time Spent with Patient: Total time spent is greater than 50% in coordination of care (as documented) at patient's floor/unit and/or counseling patient:
[2023-02-17] MEDS: SODIUM CHLORIDE 0.9% 1000ML 1,000 ML IV SCH ×2 (13:15→15:34)
--- NOTE | 2023-02-17 13:30 | Communication Note ---
Date of Service: February 17, 2023 Cardiac catheterization revealed multivessel coronary artery disease and will require inpatient transfer for likely CABG. Luckily, pain-free at this time and hemodynamically stable. Will ask primary team to arrange transfer.
--- NOTE | 2023-02-17 13:47 | Electrocardiogram Report ---
Test Reason : Blood Pressure : / mmHG Vent. Rate : 084 BPM Atrial Rate : 084 BPM P-R Int : 170 ms QRS Dur : 102 ms QT Int : 412 ms P-R-T Axes : 069 -52 206 degrees QTc Int : 486 ms Sinus rhythm with marked sinus arrhythmia Left anterior fascicular block Left ventricular hypertrophy with repolarization abnormality Cannot rule out Septal infarct , age undetermined Abnormal ECG When compared with ECG of 16-FEB-2023 13:03, RSR' pattern in V1 is no longer Present Minimal criteria for Septal infarct are now Present Confirmed by Maycol Austin ([id number]) on 02/17/2023 1:47:23 PM Referred By: REFERRED SELF Confirmed By:Maycol Austin
[2023-02-17] MEDS ORDERED: Nursing to Pharmacy Communication SCH ×2 (15:45→16:45)
[2023-02-17] MEDS: INSULIN ASPART PER UNIT CHARGE SC SCH ×3 (17:52→21:34)
[2023-02-17] MEDS ORDERED: LANTUS PER UNIT CHARGE SQ ONE (21:00)
[2023-02-18 00:07] LABS: Partial Thromboplastin Ratio 1.3; Partial Thromboplastin Time 34.5 Seconds (21.0-31.0)
[2023-02-18] MEDS ORDERED: HEPARIN SOD (PORCINE) 1000 UNIT/ML IV ONE ×2 (00:30→15:33)
[2023-02-18] MEDS: HEPARIN SODIUM/DEXTROSE 25,000 UNITS/500 ML BAG IV SCH (01:47)
[2023-02-18] MEDS ORDERED: hydrALAZINE HCL 20 MG/ML VIAL IV ONE (05:28)
[2023-02-18 07:59] LABS: Hematocrit (blood only) 38.6 % (37.0-47.0); Hemoglobin 13.2 g/dl (12.0-16.0); Mean Corpuscular Hgb Conc 34.2 g/dL (32.0-36.0); Mean Corpuscular Volume 87.7 fL (80.0-100.0); Mean Platelet Volume 9.6 fL (9.4-12.4); Platelet Count 290 K/uL (130-400); RDW Coefficient of Variation 14.2 % (11.5-14.5); RDW Standard Deviation 46.1 fL (36.4-46.3); White Blood Count 6.21 K/ul (4.8-10.8)
[2023-02-18 08:23] LABS: Partial Thromboplastin Ratio 1.4; Partial Thromboplastin Time 39.3 Seconds (21.0-31.0)
[2023-02-18] MEDS: LOSARTAN POTASSIUM 25 MG TAB PO SCH (08:51)
[2023-02-18] MEDS: ROSUVASTATIN CALCIUM 20 MG TAB PO SCH (08:51)
[2023-02-18] MEDS: DULoxetine HCL 60 MG CAP PO SCH (08:51)
[2023-02-18] MEDS: MAGNESIUM OXIDE 400 MG TAB PO SCH (08:51)
[2023-02-18] MEDS: ASPIRIN 81 MG ECTAB PO SCH (08:51)
[2023-02-18] MEDS: CYANOCOBALAMIN (B-12) 500 MCG TABLET PO SCH (08:51)
[2023-02-18] MEDS: allopurinoL 100 MG TAB PO SCH (08:51)
[2023-02-18] MEDS: FLUTICASONE PROPIONATE NA SPR 16 GM BTL NAE SCH (08:52)
[2023-02-18] MEDS: INSULIN ASPART PER UNIT CHARGE SC SCH ×3 (08:55→17:14)
[2023-02-18 10:18] LABS: BUN Creatinine Ratio 24.4 (10-20); Calcium 9.7 mg/dl (8.6-10.3); Est GFR (African American) 73.5 ml/min; Est GFR (Non-African American) 63.4 ml/min; Magnesium 1.9 mg/dl (1.7-2.4); Phosphorus 3.9 mg/dl (2.5-4.9)
[2023-02-18] MEDS ORDERED: DOCUSATE SODIUM 100 MG CAP PO SCH (13:15)
--- NOTE | 2023-02-18 14:29 | Hospitalist Progress Note ---
Date of Service February 18, 2023 Assessment & Plan (1) Abnormal dobutamine stress echocardiogram: (2) Diabetes mellitus, type 2: (3) Hypertension: (4) Dyslipidemia: (5) Breast cancer: (6) Tobacco use: (7) Depression: (8) Chronic obstructive pulmonary disease: Plan 72-year-old F with hx of shortness of breath referred to cardiology outpatient for dobutamine stress echo earlier today that was abnormal with concern for LAD territory ischemia/infarction versus stress-induced cardiomyopathy with reduced EF. Patient sent in for further evaluation including cardiac catheterization. Other medical problems include type 2 diabetes, dyslipidemia, h/o lacunar stroke in 2003 with residual lower lip numbness, PVD, asymptomatic resting hypotension, hypomagnesemia, COPD, CKD 3, tobacco use and mood disorder. NSTEMI Abnormal dobutamine stress echo Multivessel coronary artery disease Progressively worsening SOB and throat tightness x 1 mo. Stress echo done as outpt - with evidence of LAD territory ischemia/infarction versus stress-induced cardiomyopathy with reduced EF 25-29% Sent to [facility] for further evaluation with cardiac catheterization BP 90/56, HR 99, ECG with NSR, LVH and ST abnormality noted in anterior and lateral leads Initial HS troponin 556.9. BNP 376 CXR without acute process Dr. Doyle aware of patient - cardiology consulted Discussed starting IV heparin for initial management Given aspirin in ED Troponin next day in 1100 Currently asymptomatic at rest Continue statin, losartan, not currently on a beta lisa Pt underwent cardiac cath yesterday (02/17/2023) -and was found to have multivessel coronary artery disease. It was recommended that patient will be transferred to tertiary center for further evaluation and care by cardiothoracic surgery. [facility] contacted, and patient accepted by Dr. Lozano (cardiology). Patient is awaiting transfer. Also discussed with Dr. Escalera yesterday, and restarted IV heparin after cardiac cath. Carotid stenosis L subclavian stenosis Following with [facility] vascular service - tobacco use, h/o bilat mastectomy with BUE claudication Continue aspirin, statin Inaccurate BP reads in BUE - recommend BP checks in legs Type 2 diabetes A1c of 7.2 in Sep 2022. Repeat ordered for AM Hold home agents Basal/bolus regimen while in-patient - currently NPO BSG AC HS Hypertension Continue losartan, recommend BP check in legs Dyslipidemia Continue statin History of breast cancer H/o L breast carcinoma in 2004, recurrent disease met disease in axilla node in 2015, s/p bilateral mastectomy and radiation in 2015 and completion of 5 years tamoxifen. No current tx Follows annually with Dr. Combs of heme/onc Tobacco use Reduced to 4 cigarettes or less per day. Cessation counseling Depression Continue duloxetine COPD Stable. Continue inhaler, recommend smoking cessation DVT Ppx: IV heparin Code status: FULL PCP: Dr. Jluis Parker Dispo: Admitted to PCU Admission and Anticipated Discharge Date Admission Date: February 16, 2023 Subjective Pt seen in follow up of NSTEMI - presents after abnormal stress test, found to have elev. troponin, hx of shortness of breath w/ exertion for a month Started on IV heparin on admission, underwent cardiac cath yesterday - found to have multivessel coronary artery disease- recommend transfer to tertiary center for CT eval and treatment - pt accepted to [facility] - awaiting transport Currently laying in bed, in no acute distress. Currently denies any chest pain or shortness of breath. Says if she is resting she feels ok. No abdominal pain, nausea vomiting. No fevers chills Pt's present at the bedside. Review of Systems Review of Systems: All systems reviewed & are unremarkable except as noted in Subjective Physical Exam Physical Exam: General Appearance:WD/WN, F laying in bed, in NAD Head: normocephalic, atraumatic Eyes:normal inspection, PERRL, conjunctivae normal, anicteric sclerae ENT: external ear and nose normal Neck: normal visual inspection Respiratory:normal respiratory effort, lungs clear to auscultation, scattered wheezes, no rales or rhonchi. No accessory muscle use Cardiovascular: rrr, no murmur appreciated, normal peripheral pulses, no BLE edema Chest: normal inspection of chest Abdomen/GI: normal bowel sounds, soft, nontender, obese Extremities/Musculoskeletal:moves extremities Neurologic: PERRL, EOMI, no face palsy, no dysarthria, moves all extremities Psychiatric:A+Ox3, euthymic affect Skin: no rashes, normal color, warm/dry Results & Data Results & Data Vital Signs (Past 12 Hours) Vital Signs Temp Pulse Pulse Resp BP BP Pulse Ox 02/18/23 12:34 36.5 C 87 18 140/67 95 02/18/23 08:46 36.6 C 80 18 173/80 H 96 03/30/23 08:07 85 02/18/23 04:00 36.7 C 87 16 190/79 H 92 O2 Del Method 02/18/23 12:34 Room Air 02/18/23 08:46 Room Air 02/18/23 08:07 02/18/23 04:00 Room Air Laboratory Results 02/18/23 02/18/23 02/18/23 Range/Units 12:06 08:15 07:29 WBC (4.8-10.8) K/ul RBC (4.20-5.40) M/uL Hgb (12.0-16.0) g/dl Hct (37.0-47.0) % MCV (80.0-100.0) fL MCH (25.0-34.0) pg MCHC (32.0-36.0) g/dL RDW Std Deviation (36.4-46.3) fL RDW Coeff of Pito (11.5-14.5) % Plt Count (130-400) K/uL MPV (9.4-12.4) fL APTT 39.3 H (21.0-31.0) Seconds PTT Ratio 1.4 Sodium (136-145) mmol/L Potassium (3.5-5.1) mmol/L Chloride (98-107) mmol/L Carbon Dioxide (21-32) mmol/L Anion Gap (3-11) BUN (6-23) mg/dl Creatinine (0.6-1.2) mg/dl Est Cr Clr Drug Dosing ml/min Est GFR ( Amer) ml/min Est GFR (Non-Af Amer) ml/min BUN/Creatinine Ratio (10-20) Glucose (70-99(Fasting)) mg/dl POC Glucose 109 H 129 H (70-99) mg/dl Calcium (8.6-10.3) mg/dl Phosphorus (2.5-4.9) mg/dl Magnesium (1.7-2.4) mg/dl 02/18/23 02/18/23 02/17/23 Range/Units 07:29 07:29 22:55 WBC 6.21 (4.8-10.8) K/ul RBC 4.40 (4.20-5.40) M/uL Hgb 13.2 (12.0-16.0) g/dl Hct 38.6 (37.0-47.0) % MCV 87.7 (80.0-100.0) fL MCH 30.0 (25.0-34.0) pg MCHC 34.2 (32.0-36.0) g/dL RDW Std Deviation 46.1 (36.4-46.3) fL RDW Coeff of Pito 14.2 (11.5-14.5) % Plt Count 290 (130-400) K/uL MPV 9.6 (9.4-12.4) fL APTT 34.5 H (21.0-31.0) Seconds PTT Ratio 1.3 Sodium 137 (136-145) mmol/L Potassium 4.0 (3.5-5.1) mmol/L Chloride 103 (98-107) mmol/L Carbon Dioxide 22 (21-32) mmol/L Anion Gap 12 H (3-11) BUN 22 (6-23) mg/dl Creatinine 0.90 (0.6-1.2) mg/dl Est Cr Clr Drug Dosing 61.0 ml/min Est GFR ( Amer) 73.5 ml/min Est GFR (Non-Af Amer) 63.4 ml/min BUN/Creatinine Ratio 24.4 H (10-20) Glucose 126 H (70-99(Fasting)) mg/dl POC Glucose (70-99) mg/dl Calcium 9.7 (8.6-10.3) mg/dl Phosphorus 3.9 (2.5-4.9) mg/dl Magnesium 1.9 (1.7-2.4) mg/dl 02/17/23 02/17/23 Range/Units 21:04 16:53 WBC (4.8-10.8) K/ul RBC (4.20-5.40) M/uL Hgb (12.0-16.0) g/dl Hct (37.0-47.0) % MCV (80.0-100.0) fL MCH (25.0-34.0) pg MCHC (32.0-36.0) g/dL RDW Std Deviation (36.4-46.3) fL RDW Coeff of Pito (11.5-14.5) % Plt Count (130-400) K/uL MPV (9.4-12.4) fL APTT (21.0-31.0) Seconds PTT Ratio Sodium (136-145) mmol/L Potassium (3.5-5.1) mmol/L Chloride (98-107) mmol/L Carbon Dioxide (21-32) mmol/L Anion Gap (3-11) BUN (6-23) mg/dl Creatinine (0.6-1.2) mg/dl Est Cr Clr Drug Dosing ml/min Est GFR ( Amer) ml/min Est GFR (Non-Af Amer) ml/min BUN/Creatinine Ratio (10-20) Glucose (70-99(Fasting)) mg/dl POC Glucose 205 H 128 H (70-99) mg/dl Calcium (8.6-10.3) mg/dl Phosphorus (2.5-4.9) mg/dl Magnesium (1.7-2.4) mg/dl Medications Administered Current Inpatient Medications Acetaminophen (Acetaminophen 325 Mg Tab) 650 mg PO Q4H PRN PRN Reason: Pain or Fever Stop: 03/18/23 19:37 Albuterol (Albuterol Hfa 8 Gm Inhaler) 1 puffs INH Q4 PRN PRN Reason: Wheezing Stop: 03/18/23 19:37 Allopurinol ([facility]op[facility]ol 100 Mg Tab) [facility] Stop: 03/19/23 08:59 Last Admin: 02/18/23 08:51 Dose: 200 mg Aspirin (Aspirin 81 Mg Ectab) [facility] Stop: 03/19/23 08:59 Last Admin: 02/18/23 08:51 Dose: 81 mg Cyanocobalamin (Cyanocobalamin (B-12) 500 Mcg Tablet) 1,000 mcg PO QAM [facility] Stop: 03/19/23 08:59 Last Admin: 02/18/23 08:51 Dose: 1,000 mcg Dextrose (Dextrose 50% 50 Ml Syringe) 25 - 50 ml IV UD PRN; Protocol PRN Reason: Hypoglycemia Protocol Stop: 03/18/23 19:37 Docusate Sodium (Docusate Sodium 100 Mg Cap) 100 mg PO BID [facility] Stop: 03/20/23 13:14 Last Admin: 02/18/23 13:50 Dose: 100 mg Duloxetine HCl (Duloxetine Hcl 60 Mg Cap) [facility] Stop: 03/19/23 08:59 Last Admin: 02/18/23 08:51 Dose: 60 mg Fluticasone Propionate (Fluticasone Propionate Na Spr 16 Gm Btl) 2 sprays MARYANNE QAM [facility] Stop: 03/19/23 08:59 Last Admin: 02/18/23 08:52 Dose: 2 sprays Glucagon (Glucagon For Inj 1 Mg Vial) 1 mg SQ UD PRN; Protocol PRN Reason: Hypoglycemia Protocol Stop: 03/18/23 19:37 Glucose (Glucose 10 Tab/Tube) 4 - 8 tab PO UD PRN; Protocol PRN Reason: Hypoglycemia Treatment Stop: 03/18/23 19:37 Glucose (Glucose 40% Gel 15 Gm Tube) 15 - 30 gm PO UD PRN; Protocol PRN Reason: Hypoglycemia Protocol Stop: 03/18/23 19:37 Heparin Sodium/Dextrose (Heparin Sodium/Dextrose) 25,000 units in 500 mls @ 22 mls/hr IV .[id number] [facility]; Protocol Stop: 03/18/23 22:44 Last Titration: 02/18/23 08:52 Dose: 1,100 units/hr, 22 mls/hr Insulin Aspart (Insulin Aspart Per Unit Charge) 0 units SC ACHS [facility] Stop: 03/19/23 11:59 Last Admin: 02/18/23 12:41 Dose: 5 units Insulin Aspart (Insulin Aspart Per Unit Charge) 0 units SC 0000 [facility] Stop: 02/19/23 00:01 Insulin Glargine (Lantus Per Unit Charge) 10 units SQ HS [facility] Stop: 03/20/23 20:59 Losartan Potassium (Losartan Potassium 25 Mg Tab) [facility] Stop: 03/19/23 08:59 Last Admin: 02/18/23 08:51 Dose: 12.5 mg Magnesium Oxide (Magnesium Oxide 400 Mg Tab) 400 mg PO QAM [facility] Stop: 03/19/23 08:59 Last Admin: 02/18/23 08:51 Dose: 400 mg Miscellaneous (Carbohydrates For Hypoglycemia ) 15 - 30 gm PO UD PRN PRN Reason: Hypoglycemia Protocol Stop: 03/18/23 19:37 Miscellaneous Information (Pharmacy Glycemic Mgmt Consult) 1 each N/A UD PRN PRN Reason: Consult Stop: 03/18/23 19:37 Ondansetron HCl (Ondansetron Inj 2 Mg/Ml 2 Ml Vial) 4 mg IV Q6H PRN PRN Reason: Nausea Stop: 03/18/23 19:37 Polyethylene Glycol (Polyethylene (Miralax) 17 Gm Pack) 17 gm PO DAILY PRN PRN Reason: Constipation Stop: 03/18/23 19:37 Rosuvastatin Calcium (Rosuvastatin Calcium 20 Mg Tab) 20 mg PO DAILY [facility] Stop: 03/19/23 08:59 Last Admin: 02/18/23 08:51 Dose: 20 mg
--- NOTE | 2023-02-18 14:42 | Discharge Summary ---
Date of Service February 18, 2023 Admission HPI Per Admitting Provider This is a 72-year-old female with PMH of shortness of breath referred to cardiology outpatient for dobutamine stress echo earlier today that was abnormal with concern for LAD territory ischemia/infarction versus stress-induced cardiomyopathy with reduced EF. Has been having progressively worsening shortness of breath with exertion and pressure in throat over the past month with any type of exertion. Tried vacuuming last week and had to sit down and rest on 3 separate occasions. States she feels asymptomatic when lying still at rest although needs to be propped upright or she develops orthopnea. Denies any swelling of lower extremities. No lightheadedness, anthony chest pain, near syncope, nausea, vomiting or abdominal pain. Does endorse intermittent palpitations over the past month that resolves on its own. No dysuria, diarrhea or constipation. Denies any known history of coronary artery disease or heart failure. History of tobacco use but has decreased to 4 cigarettes in the past 2 days. Other medical problems include type 2 diabetes, dyslipidemia, PAD, asymptomatic resting hypotension, hypomagnesemia, COPD, CKD 3, tobacco use and mood disorder. Denies any recent medication changes. Stress echo today with evidence of LAD territory ischemia/infarction versus stress-induced cardiomyopathy with reduced EF 25 to 29%. Sent to [facility] for further evaluation with cardiac catheterization. Admission Exam Per Admitting Provider General Appearance:WD/WN, vitals as above, NAD, sitting up in bed, pleasant, conversing easily Head: normocephalic, atraumatic Eyes:normal inspection, PERRL, conjunctivae normal, anicteric sclerae ENT: external ear and nose normal, oropharynx normal Neck: normal visual inspection, trachea midline, no thyromegaly Respiratory:normal respiratory effort, lungs clear to auscultation, scattered wheezes, no rales or rhonchi. No accessory muscle use Cardiovascular: tachycardic rate, regular rhythm, no murmur appreciated, normal peripheral pulses, no BLE edema Chest: normal inspection of chest Abdomen/GI: normal bowel sounds, soft, nontender, no hepatosplenomegaly Extremities/Musculoskeletal: no cyanosis or clubbing, extremities motor strength 5/5 Neurologic: PERRL, EOMI, accommodation nl, no face palsy, no dysarthria, CN's II-XI intact bilaterally and moves all extremities Psychiatric:A+Ox3, euthymic affect Skin: no rashes, normal color, warm/dry Principal Diagnosis NSTEMI Multivessel coronary artery disease Discharge Exam General Appearance:WD/WN, F laying in bed, in NAD Head: normocephalic, atraumatic Eyes:normal inspection, PERRL, conjunctivae normal, anicteric sclerae ENT: external ear and nose normal Neck: normal visual inspection Respiratory:normal respiratory effort, lungs clear to auscultation, scattered wheezes, no rales or rhonchi. No accessory muscle use Cardiovascular: rrr, no murmur appreciated, normal peripheral pulses, no BLE edema Chest: normal inspection of chest Abdomen/GI: normal bowel sounds, soft, nontender, obese Extremities/Musculoskeletal:moves extremities Neurologic: PERRL, EOMI, no face palsy, no dysarthria, moves all extremities Psychiatric:A+Ox3, euthymic affect Skin: no rashes, normal color, warm/dry Discharge Data Allergies Allergy/AdvReac Type Severity Reaction Status Date / Time BEBE Inhibitors Allergy Unknown Unknown Verified 03/23/22 11:05 Penicillins Allergy Unknown RASH Verified 03/23/22 11:05 atorvastatin AdvReac Unknown MYALGIA Verified 03/23/22 11:05 Consultations 02/16/23 14:47 ED Decision to Admit Stat 02/16/23 15:13 Consult Cardiology Routine 02/17/23 08:48 Consult Cardiac Catheterization Routine 02/17/23 14:55 Burn CD for patient Stat Procedures Performed Operation Date: 02/17/23 10:30 Actual Procedures p Cath, Left with Cors and Vent - Ramon Caputo MD s Cineradiography w/Routine Exam - Ramon Caputo MD Ordered Studies 02/17/23 09:49 CL Cath Imgs for PACS use only Stat Hospital Course (1) Abnormal dobutamine stress echocardiogram: (2) Diabetes mellitus, type 2: (3) Hypertension: (4) Dyslipidemia: (5) Breast cancer: (6) Tobacco use: (7) Depression: (8) Chronic obstructive pulmonary disease: Plan Assessment & Plan (1) Abnormal dobutamine stress echocardiogram: (2) Diabetes mellitus, type 2: (3) Hypertension: (4) Dyslipidemia: (5) Breast cancer: (6) Tobacco use: (7) Depression: (8) Chronic obstructive pulmonary disease: Plan 72-year-old F with hx of shortness of breath referred to cardiology outpatient for dobutamine stress echo earlier today that was abnormal with concern for LAD territory ischemia/infarction versus stress-induced cardiomyopathy with reduced EF. Patient sent in for further evaluation including cardiac catheterization. Other medical problems include type 2 diabetes, dyslipidemia, h/o lacunar stroke in 2004 with residual lower lip numbness, PVD, asymptomatic resting hypotension, hypomagnesemia, COPD, CKD 3, tobacco use and mood disorder. NSTEMI Abnormal dobutamine stress echo Multivessel coronary artery disease Progressively worsening SOB and throat tightness x 1 mo. Stress echo done as outpt - with evidence of LAD territory ischemia/infarction versus stress-induced cardiomyopathy with reduced EF 25-29% Sent to [facility] for further evaluation with cardiac catheterization BP 90/56, HR 99, ECG with NSR, LVH and ST abnormality noted in anterior and lateral leads Initial HS troponin 556.9. BNP 376 CXR without acute process Dr. Doyle aware of patient - cardiology consulted Discussed starting IV heparin for initial management Given aspirin in ED Troponin next day in 1100 Currently asymptomatic at rest Continue statin, losartan, not currently on a beta lisa Pt underwent cardiac cath yesterday (02/17/2023) -and was found to have multivessel coronary artery disease. It was recommended that patient will be transferred to tertiary center for further evaluation and care by cardiothoracic surgery. [facility] contacted, and patient accepted by Dr. Lozano (cardiology). Patient is awaiting transfer. Also discussed with Dr. Escalera yesterday, and restarted IV heparin after cardiac cath. Carotid stenosis L subclavian stenosis Following with [facility] vascular service - tobacco use, h/o bilat mastectomy with BUE claudication Continue aspirin, statin Inaccurate BP reads in BUE - recommend BP checks in legs Type 2 diabetes A1c of 7.2 in Sep 2022. Repeat ordered for AM Hold home agents Basal/bolus regimen while in-patient - currently NPO BSG AC HS Hypertension Continue losartan, recommend BP check in legs Dyslipidemia Continue statin History of breast cancer H/o L breast carcinoma in 2004, recurrent disease met disease in axilla node in 2014, s/p bilateral mastectomy and radiation in 2014 and completion of 5 years tamoxifen. No current tx Follows annually with Dr. Combs of heme/onc Tobacco use Reduced to 4 cigarettes or less per day. Cessation counseling Depression Continue duloxetine COPD Stable. Continue inhaler, recommend smoking cessation Total Time Total Time Spent Total Time Spent (In Minutes): 40 Discharge Plan Discharge Items Patient Disposition: Transfer Acute Care Hospital Reason For Visit: ABNORMAL STRESS TEST, HEART FAILURE Discharge Diagnosis: NSTEMI Multivessel coronary artery disease Activity: Per Instructions section Non-emergency contact: Surgeon and Citrus Peeler Call non-emergency contact if: you have any medication questions and your symptoms worsen Follow-up/Referrals: Teja Parker DO [Primary Care Provider] - Diet: Carb Consistent or DM2 and Heart Healthy Addtl Attending Provider Instructions: Patient presented after abnormal stress test. Underwent cardiac catheterization today, found to have multivessel coronary disease. Recommended transfer to [facility] for evaluation and treatment by cardiothoracic surgery. Pending Studies at Discharge: No Stand-Alone Forms: My [facility] Skilled Items Patient informed of condition?: Yes DNR: No Discharge Level of Care: Other Communicable Disease: No Discharge Prognosis: Other Lines: Peripheral IV Urinary Catheter: No Medications and DC Order Prescriptions: Continued insulin glargine [Lantus U-100 Insulin] 100 unit/mL Solution 32 unit SUBCUT HS cyanocobalamin (vitamin B-12) 1,000 mcg Tablet 1,000 mcg PO QAM metformin 1,000 mg Tablet 1,000 mg PO BID losartan 25 mg Tablet 12.5 mg PO QAM albuterol sulfate [ProAir HFA] 90 mcg/actuation Hfa Aerosol Inhaler 1 inh INHALATION Q4 PRN (Reason: Wheezing) magnesium 250 mg Tablet 500 mg PO QAM allopurinol 100 mg Tablet 200 mg PO QAM duloxetine 30 mg Capsule,Delayed Release(Dr/Ec) 60 mg PO QAM aspirin 81 mg Tablet,Delayed Release (Dr/Ec) 81 mg PO QAM fluticasone propionate 50 mcg/actuation [place],Suspension 2 spray INTRANASAL QAM Rx Instructions: administer into each nostril rosuvastatin 20 mg Tablet 20 mg PO DAILY indomethacin 50 mg Capsule 50 mg PO BID PRN (Reason: Pain) Rx Instructions: administer with food or milk naproxen 500 mg Tablet 500 mg PO BID Discharge Orders: Discharge Order (Routine); Ordered 02/18/23 Ordered By: Ancelmo Gaspar/Other Patient Handouts: Managing Type 2 Diabetes Admission Data Admit Date/Time: 02/16/23 15:09 Attending Provider: Ancelmo Romero Admit Provider: Alvarez Thomas Primary Care Provider: Teja Parker Other Providers: Howard Doyle ; Alvarez Thomas ; Ramon Caputo
[2023-02-18 15:14] LABS: Partial Thromboplastin Ratio 1.2; Partial Thromboplastin Time 33.8 Seconds (21.0-31.0)
[2023-02-18] MEDS ORDERED: LANTUS PER UNIT CHARGE SQ SCH (21:00)
[2023-02-19] MEDS ORDERED: INSULIN ASPART PER UNIT CHARGE SC SCH
--- NOTE | 2023-02-25 07:59 | Coding Query ---
CODING QUERY To promote full compliance with coding requirements relating to patient care, provider participation is requested in all cases of boot and saddle repair person uncertainty. Please assist us with the question(s) below: The below query was first placed to Dr. Doyle but we were unable to get the query answered. Your help is greatly appreciated in order to answer the below query. Coding Question(s): Cardiomyopathy is documented in the record, with documentation, as on the Cardiology Consultation of, "The patient was referred for dobutamine stress echocardiogram by her PCP to evaluate unstable angina. Resting study revealed LAD territory ischemia/infarct versus stress-induced cardiomyopathy with an ejection fraction of 25 to 29%, stress portion obviously aborted", and documentation on the Cardiac Catheterization report of, "Indication: Accelerating angina, cardiomyopathy, type 2 diabetes, PAD", and, "Pre-Procedure Diagnosis Pre-Procedure Diagnosis: Non STEMI, Positive Stress Test and Cardiomyopathy AUC Score AUC Score: 8 Post-Procedure Diagnosis Post-Procedure Diagnosis: Severe CAD and Normal Intracardiac Pressures". It is not clear if Cardiomyopathy is ruled-out, or still possible. Please specify below, in your clinical opinion, regarding Cardiomyopathy: ( ) Cardiomyopathy is Ruled-Out ( ) Cardiomyopathy is still possible: Please specify further below, to specify Cardiomyopathy: ( ) Possible Cardiomyopathy, Unspecified ( ) Possible Cardiomyopathy, Specified: Please Specify ( ) Possible Stress Induced Cardiomyopathy ( X ) Other: Please Specify Patient has ischemic cardiomyopathy Physician's Response(s): Thank you Azeb Hogan Principal Diagnosis: "that condition established after study, to be chiefly responsible for occasioning the admission of the patient to the hospital for care." Co-Existing Principal Diagnosis: "when two or more diagnoses equally meet the criteria for principal diagnosis as determined by the circumstances of admission, diagnostic work up, and/or therapy provided, and the Alphabetic Index, Tabular List, or another coding guideline does not provide sequencing direction, any one of the diagnoses may be sequenced first." "When the physician has documented what appears to be a current diagnosis in the body of the record, but has not included the diagnosis in the final diagnostic statement, the physician should be asked whether the diagnosis should be added." (Source Coding [facility] 2 QTR90. p3-4) PAULINA
== END 2023-02-18 18:22 | disposition short-term general hospital (02) | DRG 282 ==
LOC: ED 12:54 → SUATTDRO 15:09 → EDINP 15:09 → 4W 19:37